=== PATIENT | male | born 1990 | race Two or more races ===

== ENCOUNTER 2020-08-18 15:30 | Emergency (ER) | payer MEDICAID, SELFPAY ==
[2020-08-18 15:42] VITALS: BP 159/95; BP 168/75; PULSE 100; PULSE 88; RESP 18; TEMP 37.3; O2SAT 97; BMI 31.1
--- NOTE | 2020-08-18 16:38 | ED.NAVMDI ---
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 Mode of arrival: ambulatory Limitations: no limitations History of Present Illness MD elicited complaint: nausea, vomiting, diarrhea, abdominal pain and other (headaches) Onset (ago): day(s) (2) Description of vomiting: bilious Associated nausea: Yes Associated abdominal pain: Yes Location of pain: periumbilical and RLQ Pain consistency: constant Severity: moderate Quality: stabbing Exacerbating factors: none Relieving factors: none Associated symptoms: loss of appetite, malaise and nausea/vomiting Related Data Previous Rx's Medication Instructions Recorded ondansetron 4 mg PO Q8H PRN #20 tab 08/18/20 Allergies Allergy/AdvReac Type Severity Reaction Status Date / Time No Known Allergies Allergy Unverified 06/11/20 19:21 [No Known Allergies*] Review of Systems Review of Systems: Constitutional : No Weight loss, No Fever, No Chills ENT/Mouth : No sore throat, No Rhinorrhea Eyes: No Swelling, No Redness Cardiovascular : No Chest Pain, No SOB, NoEdema Respiratory : No Cough, No Sputum, No Wheezing Gastrointestinal : Positive Nausea, Positive Vomiting, no Diarrhea, positive abdominal Pain, No Hematochezia, No Melena Genitourinary : No Dysuria, No Urinary Frequency, No Hematuria, No Urgency Musculoskeletal : No joint pain, No Myalgias, No Joint Swelling Skin : No Skin Lesions, No rash Neuro : No Weakness, No Numbness, No Dizziness, pos Headache Psych : No Anxiety/Panic, No Depression Heme/Lymph: No Bruising, No Lymphadenopathy Endocrine : No Polyuria, No Polydipsia All other systems reviewed and are negative. Gastrointestinal: Gastrointestinal: Reports nausea PMFSH Past Medical History Attestation statement: The following information was validated with the patient. Medical History No known health problems Social History Social History (Updated 08/18/20 @ 16:48 by Faby Dong DO) Alcohol intake: current Smoking Status: Current every day smoker Use of substances other than those prescribed or required for medical reasons: Unknown Substance Use Type: Former Substance User Substance Use Type Other:: on methadone 60mg now Advance Directives: No Advance Directives Information Provided: No Physical Exam Vital Signs: Vital Signs: Last Vital Signs Temp 99.5 F 08/18/20 18:00 Pulse 84 08/18/20 18:00 Resp 16 08/18/20 18:00 BP 123/81 08/18/20 18:00 Pulse Ox 96 08/18/20 18:00 Body Mass Index 31.1 Appearance: Alert. Oriented X3. active vomiting, mild acute distress. Eyes: Pupils equal, round and reactive to light. ENT: Pharynx normal. Neck: Normal inspection. Neck supple. CVS: Normal heart rate and rhythm. Pulses normal. Respiratory: No respiratory distress. Breath sounds normal. Abdomen: Soft and moderate ttp RLQ no rebound or guarding Skin: Skin warm and dry. Normal skin color. Normal skin turgor. Extremities: No lower extremity edema. No calf ttp Neuro: Oriented X 3. No motor deficit. No sensory deficit. Course Course Course Narrative: feels better, has no RUQ pain LFTs slightly higher doubt GB disease at this time, will refer to PCP for hepatitis workup from prior IVDA, stable for DC MDM - Nausea/Vomiting/Diarrhea MDM Narrative Medical decision making narrative: 30 yo male on methadone who reports being able to take his medications here with n/v/d with headaches and lower abdominal pain at this time will need labs, CT scan for colitis/appendicitis, IVF, IV medications, dispo per results and findings. Lab Data Result diagrams: 08/18/20 17:45 08/18/20 17:45 Labs: Lab Results 08/18/20 08/18/20 08/18/20 Range/Units 17:45 17:45 17:45 WBC 7.0 (4.8-10.8) X10*3/uL RBC 5.38 (4.60-5.80) X10*6/uL Hgb 15.0 (14.0-18.0) g/dl Hct 46.0 (42-52) % MCV 85.5 (80-98) fL MCH 27.9 (27.0-33.0) pg MCHC 32.6 (31.0-36.0) g/dl RDW 13.1 (11.0-16.0) % Plt Count 205 (160-400) X10*3/uL MPV 9.6 (9.4-12.4) fL Immature Gran % (Auto) 0.1 (0.0-0.4) % Neut % (Auto) 77.8 H (45-73) % Lymph % (Auto) 13.2 L (20-40) % [place] % (Auto) 8.4 (2-11) % Eos % (Auto) 0.1 (0-4) % Baso % (Auto) 0.4 (0-2) % Lymph # (Auto) 0.9 L (1.2-4.9) X10*3/uL [place] # (Auto) 0.6 (0.1-1.2) X10*3/uL Eos # (Auto) 0.0 (0.0-0.4) X10*3/uL Baso # (Auto) 0.0 (0.0-0.2) X10*3/uL Abs Immat Gran (auto) 0.01 (0.00-0.03) X10*3/uL Absolute Neuts (auto) 5.4 (2.0-8.3) X10*3/uL Absolute Nucleated RBC 0.000 (0.0-0.012) X10*3/uL Nucleated RBC % (auto) 0.0 (0.0-0.2) /100WBC Sodium 138 (135-145) mmol/L Potassium 4.5 (3.3-5.1) mmol/l Chloride 104 (96-108) mmol/L Carbon Dioxide 25 (22-29) mmol/L Anion Gap 14 (12-20) BUN 13 (9-16) mg/dL Creatinine 0.90 (0.5-1.4) mg/dL Estim Creat Clear Calc 132.8 Estimated GFR > 60 Random Glucose 94 (60-115) mg/dL Lactic Acid 1.3 (0.5-2.0) mmol/L Calcium 9.3 (8.4-10.2) mg/dL Magnesium 2.0 (1.6-2.6) mg/dL Total Bilirubin 0.3 (0.0-1.0) mg/dL Direct Bilirubin 0.2 (0.0-0.5) mg/dL AST 79 H (5-37) U/L ALT 113 H (0-40) U/L Alkaline Phosphatase 185 H (39-117) U/L Total Protein 8.2 H (6.5-8.0) g/dL Albumin 4.4 (3.5-5.0) g/dL Lipase 16 (8-78) U/L Ethyl Alcohol mg/dL 08/18/ Range/Units 17:45 WBC (4.8-10.8) X10*3/uL RBC (4.60-5.80) X10*6/uL Hgb (14.0-18.0) g/dl Hct (42-52) % MCV (80-98) fL MCH (27.0-33.0) pg MCHC (31.0-36.0) g/dl RDW (11.0-16.0) % Plt Count (160-400) X10*3/uL MPV (9.4-12.4) fL Immature Gran % (Auto) (0.0-0.4) % Neut % (Auto) (45-73) % Lymph % (Auto) (20-40) % [place] % (Auto) (2-11) % Eos % (Auto) (0-4) % Baso % (Auto) (0-2) % Lymph # (Auto) (1.2-4.9) X10*3/uL [place] # (Auto) (0.1-1.2) X10*3/uL Eos # (Auto) (0.0-0.4) X10*3/uL Baso # (Auto) (0.0-0.2) X10*3/uL Abs Immat Gran (auto) (0.00-0.03) X10*3/uL Absolute Neuts (auto) (2.0-8.3) X10*3/uL Absolute Nucleated RBC (0.0-0.012) X10*3/uL Nucleated RBC % (auto) (0.0-0.2) /100WBC Sodium (135-145) mmol/L Potassium (3.3-5.1) mmol/l Chloride (96-108) mmol/L Carbon Dioxide (22-29) mmol/L Anion Gap (12-20) BUN (9-16) mg/dL Creatinine (0.5-1.4) mg/dL Estim Creat Clear Calc Estimated GFR Random Glucose (60-115) mg/dL Lactic Acid (0.5-2.0) mmol/L Calcium (8.4-10.2) mg/dL Magnesium (1.6-2.6) mg/dL Total Bilirubin (0.0-1.0) mg/dL Direct Bilirubin (0.0-0.5) mg/dL AST (5-37) U/L ALT (0-40) U/L Alkaline Phosphatase (39-117) U/L Total Protein (6.5-8.0) g/dL Albumin (3.5-5.0) g/dL Lipase (8-78) U/L Ethyl Alcohol < 10 mg/dL Discharge Plan Discharge Clinical Impression: Abnormal LFTs Abdominal pain Qualifiers: Abdominal location: generalized Qualified Code(s): R10.84 - Generalized abdominal pain Vomiting Qualifiers: Vomiting type: unspecified Vomiting Intractability: non-intractable Nausea presence: with nausea Qualified Code(s): R11.2 - Nausea with vomiting, unspecified Patient Disposition: Home, Self-Care Instructions: Acute Nausea and Vomiting (ED), Abdominal Pain (ED) Additional Instructions: return to ED for any worsening symptoms or concerns Prescriptions: New ondansetron 4 mg tablet,disintegrating 4 mg PO Q8H PRN (Reason: nausea and vomiting) Qty: 20 RF: 0 Referrals: Physician,Unknown [Primary Care Provider] - 5 days (repeat liver function tests ) Stand Alone Forms: Work/School Release Print Language: Cameroonian
--- NOTE | 2020-08-18 16:44 | CT_ITS ---
EXAMINATION: CT ABDOMEN AND PELVIS WITH CONTRAST CLINICAL INFORMATION: Right lower quadrant pain COMPARISON: CT abdomen pelvis 06/22/2019 TECHNIQUE: Multidetector volumetric images were obtained from the superior aspect of the liver through the pubic symphysis following administration 85 mL of Omnipaque 350 intravenous contrast. Sagittal and coronal reformatted images were obtained on the technologist's workstation. Oral contrast: No This CT examination was performed using dose optimization techniques as appropriate, variously including the following: *Automated exposure control *Adjustment of mA and/or kV according to patient size (this includes techniques or standardized protocols for targeted exams where dose is matched to indication/reason for exam; i.e. extremities or head) *Use of iterative reconstruction technique DLP: 7 a mGy-cm FINDINGS: LUNG BASES: The visualized lung bases are unremarkable. LIVER, GALLBLADDER, AND BILIARY TREE: The liver is normal in size, shape, and attenuation. No focal hepatic lesion or biliary ductal dilatation is present. The gallbladder is unremarkable with no evidence of radiopaque gallstones, gallbladder wall thickening, or obvious pericholecystic inflammatory changes. PANCREAS: Unremarkable. SPLEEN: Unremarkable. ADRENAL GLANDS: Unremarkable. KIDNEYS AND URETERS: The kidneys are normal in size, shape, and attenuation. No hydronephrosis, hydroureter, or calculi seen. No perinephric stranding. BLADDER: Unremarkable. GASTROINTESTINAL TRACT: The small and large bowel are unremarkable. The appendix is unremarkable. ABDOMINAL WALL: No significant hernia is appreciated. LYMPH NODES: Normal. VASCULAR: Unremarkable. PELVIC VISCERA: Unremarkable. OSSEOUS STRUCTURES: Unremarkable. CT/CT abdomen pelvis w con IMPRESSION: No significant abnormality.
--- NOTE | 2020-08-18 17:00 | PC.NURSE ---
heart toes of 134 obtained via doppler
[2020-08-18] MEDS: 0.9 % Sodium Chloride 1,000 ML 999 ML IVCONT ×2 (17:24→18:30)
[2020-08-18] MEDS: Ketorolac Tromethamine 30 MG/ML VIAL IVPUSH (17:24)
[2020-08-18] MEDS: Metoclopramide HCl 10 MG/2 ML VIAL IVPUSH (17:24)
[2020-08-18] MEDS: diphenhydrAMINE HCL 50 MG/ML VIAL 25 MG IVPUSH (17:24)
[2020-08-18 17:53] LABS: Basophils Percent Auto 0.4 % (0-2); Eosinophils Percent Auto 0.1 % (0-4); Imm Gran Abs Auto 0.01 X10*3/uL (0.00-0.03); Imm Gran Pct Auto 0.1 % (0.0-0.4); Lymphocytes Absolute Auto 0.9 X10*3/uL (1.2-4.9); Lymphocytes Percent Auto 13.2 % (20-40); MANUAL DIFF FLAG NO; Mean Corpuscular HGB Conc 32.6 g/dl (31.0-36.0); Mean Corpuscular Hemoglobin 27.9 pg (27.0-33.0); Mean Corpuscular Volume 85.5 fL (80-98); Mean Platelet Volume 9.6 fL (9.4-12.4); Monocytes Absolute Auto 0.6 X10*3/uL (0.1-1.2); Monocytes Percent Auto 8.4 % (2-11); Neutrophils Absolute Auto 5.4 X10*3/uL (2.0-8.3); Neutrophils Percent Auto 77.8 % (45-73); Platelet Count 205 X10*3/uL (160-400); Red Blood Count 5.38 X10*6/uL (4.60-5.80); Red Cell Distribution Width 13.1 % (11.0-16.0)
[2020-08-18 18:00] VITALS: BP 123/81; PULSE 84; RESP 16; TEMP 37.5; O2SAT 96
[2020-08-18 18:16] LABS: Lactic Acid 1.3 mmol/L (0.5-2.0)
[2020-08-18 18:17] LABS: Ethanol < 10 mg/dL
[2020-08-18 18:31] LABS: Alanine Aminotransferase 113 U/L (0-40); Albumin Level 4.4 g/dL (3.5-5.0); Alkaline Phosphatase 185 U/L (39-117); Anion Gap 14 (12-20); Aspartate Amino Transferase 79 U/L (5-37); Bilirubin Direct 0.2 mg/dL (0.0-0.5); Bilirubin Total 0.3 mg/dL (0.0-1.0); Blood Urea Nitrogen 13 mg/dL (9-16); Calcium 9.3 mg/dL (8.4-10.2); Carbon Dioxide 25 mmol/L (22-29); Chloride 104 mmol/L (96-108); Creatinine Clr Calc Pharmacy 132.8; Estimated Glomerular Filt Rate > 60; Glucose Random 94 mg/dL (60-115); Lipase 16 U/L (8-78); Potassium 4.5 mmol/l (3.3-5.1); Sodium 138 mmol/L (135-145); Total Protein 8.2 g/dL (6.5-8.0)
[2020-08-18] MEDS: iohexoL 350 MG/ML 100 ML INFUS..BTL IV (19:06)
--- NOTE | 2020-08-18 19:50 | PC.NURSE ---
pt tolerating po well
[2020-08-18 22:56] LABS: Amphetamine Screen Urine Not Detected (Not Detect); Barbiturates, Urine Not Detected (Not Detect); Benzodiazepines Screen Urine Not Detected (Not Detect); Cannabinoid Screen Urine POSITIVE (Not Detect); Cocaine Screen Urine Not Detected (Not Detect); Opiate Screen Urine Not Detected (Not Detect); Phencyclidine Screen Urine Not Detected (Not Detect)
== END 2020-08-18 20:16 | disposition home or self-care (01) ==
PROVIDERS: Emergency Provider Emergency Medicine
DX: R79.89 Other specified abnormal findings of blood chemistry (principal); R11.2 Nausea with vomiting, unspecified; R51.9 Headache, unspecified; R10.31 Right lower quadrant pain; R10.84 Generalized abdominal pain; F17.200 Nicotine dependence, unspecified, uncomplicated; Z79.899 Other long term (current) drug therapy; Z71.6 Tobacco abuse counseling
CPT/HCPCS: 36415; 74177; 80048; 80076; 80307; 80320; 83605; 83690; 83735; 85025; 96361; 96374; 96375; 99284; J1200; J1885; J2765; Q9967

== ENCOUNTER 2023-02-18 11:25 | Emergency (ER) | payer MEDICAID, SELFPAY ==
[2023-02-18 11:40] VITALS: BP 145/90; PULSE 96; RESP 18; TEMP 36.6; O2SAT 99; BMI 34.4
--- NOTE | 2023-02-18 15:26 | MHC.RECOVRN ---
Spoke with MAURICIO Bañuelos at [facility]. Pt last received methadone, 65 mg on 02/17/23 at 0530. Pts information has been sent to [facility] and pt will need to present tomorrow with last dose letter. Provider and RN aware.
--- NOTE | 2023-02-18 15:29 | ED_ITS ---
HPI - General Adult General Chief complaint: General Medical Stated complaint: medication Time Seen by Provider: 02/18/23 13:16 Source: patient, RN notes reviewed and certified court/medical interpreter Mode of arrival: ambulatory Limitations: language barrier (Solution Design And Analysis Manager used) History of Present Illness HPI narrative: This is a 32-year-old Latvian-speaking male, with a past medical history of opioid use disorder on methadone 65 mg p.o., who presents to the emergency department for methadone dosing. Patient reports he was discharged from [facility] yesterday and was advised to follow up with the methadone clinic today however he reported there in the did not have all of his paperwork therefore he was unable to get his methadone dose today. Patient reports that he is feeling well and has no other complaints. No other complaints or concerns at this time. MD complaint: methadone dose Quality: aching Pain Consistency: constant Relieving factors: none Exacerbating factors: none Associated symptoms: denies other symptoms Treatments prior to arrival: none Related Data Previous Rx's Medication Instructions Recorded ondansetron 4 mg disintegrating 4 mg PO Q8H PRN nausea and 08/18/20 tablet vomiting #20 tabs Allergies Allergy/AdvReac Type Severity Reaction Status Date / Time No Known Allergies Allergy Unverified 06/11/20 19:21 [No Known Allergies*] Review of Systems Review of Systems: Constitutional: No Weight loss, No Fever, No Chills ENT/Mouth: No Ear Pain, No Nasal Congestion, No Sinus Pain, No Hoarseness, No sore throat, No Rhinorrhea, No Swallowing Difficulty Cardiovascular: No Chest Pain, No SOB Respiratory: No Cough, No Sputum, No Wheezing Gastrointestinal: No Nausea, No Vomiting, No Diarrhea, No Constipation, No Abdominal pain Genitourinary: No Dysuria, No Urinary Frequency, No Hematuria, No Urinary Incontinence/retention, No Urgency, No Flank Pain Musculoskeletal: No joint pain, No Myalgias, No Joint Swelling Skin: No Skin Lesions, No rash Neuro: No Weakness, No Numbness, No Paresthesias PMFSH Past Medical History Medical History No known health problems Social History Social History (Updated 08/18/20 @ 16:48 by Priscilla Dong DO) Alcohol intake: current Substance Use Type: Former Substance User Advance Directives: No Advance Directives Information Provided: No Physical Exam ED Vital Signs: Vital Signs - 24 hr 02/18/23 11:40 Temperature 98 F Pulse Rate 96 Respiratory Rate 18 Blood Pressure 145/90 H Pulse Oximetry 99 Oxygen Delivery Method Room Air BMI result Body Mass Index 34.4 General: Awake, alert, and oriented X3. No acute distress. HEENT: Normal inspection CVS: Normal heart rate and rhythm. Pulses normal. Respiratory: No respiratory distress Skin: Warm, dry, no rashes noted to exposed skin. Normal skin color. Normal skin turgor. Extremities: Normal inspection Neuro: Oriented X 3. No motor deficit. No sensory deficit. Medications Administered Discontinued Medications Generic Name Dose Route Start Last Admin Trade Name Freq PRN Reason Stop Dose Admin Methadone HCl 65 mg 02/18/23 15:28 02/18/23 15:37 Methadone Hcl 20 Mg/2 Ml Oral.Conc PO 02/18/23 15:29 65 mg ONCE ONE Administration Medical Decision Making Medical Decision Making MDM Narrative: 32-year-old male presenting to the emergency department for methadone dosing. Patient was discharged from [facility] yesterday and was advised to follow-up outpatient however reports when he arrived to the clinic today they were unable to does as needed not all of the paperwork. Case discussed with recovery team who confirmed methadone dosing of methadone 65 mg by mouth, last dose was yesterday. Patient medicated in the department with methadone 65 mg p.o. and given a last dose letter for him to follow-up with the outpatient clinic tomorrow. He has no current complaints. He is feeling well. Vital signs stable. Patient understands and agrees with plan. Patient stable for discharge. Differential Diagnosis Differential Diagnoses: The differential diagnosis associated with the presentation includes Polysubstance abuse, opioid use disorder, methadone dose, anxiety, depression Discharge Plan Discharge Clinical Impression: Opioid use disorder Patient Disposition: Home, Self-Care Instructions: Opioid Use Disorder (ED) Additional Instructions: You received your methadone 65 mg dose today. We had given you a last dose letter so you can follow-up with your Methadone Clinic outpatient tomorrow. Please return with any new or worsening symptoms. Prescriptions: No Action ondansetron 4 mg tablet,disintegrating 4 mg PO Q8H PRN (Reason: nausea and vomiting) Qty: 20 0RF Interventions: ED Discharge Assessment Last Done: 05/27/23 15:45 Discharge Date/Time: 02/18/23 15:45
[2023-02-18] MEDS: methADONE HCl 20 MG/2 ML ORAL.CONC 65 MG PO (15:37)
--- NOTE | 2023-02-18 15:45 | PC.NURSE ---
last dose letter given.
== END 2023-02-18 15:45 | disposition home or self-care (01) ==
PROVIDERS: Emergency Provider Internal Medicine
DX: F11.20 Opioid dependence, uncomplicated (principal)
CPT/HCPCS: 99282; 99283

== ENCOUNTER 2023-07-03 11:11 | Emergency (ER) | payer MEDICAID, SELFPAY ==
[2023-07-03 11:19] VITALS: BP 150/100; PULSE 72; O2SAT 94
[2023-07-03 12:14] VITALS: BP 140/94; PULSE 71; RESP 16; TEMP 36.5; O2SAT 97; BMI 33.3
--- NOTE | 2023-07-03 12:14 | ED.GENADULT ---
HPI - General Adult General Chief complaint: Nausea/Vomiting/Diarrhea Stated complaint: NAUSEA/VOMITING,DIZZY S/P METHADONE X3 WKS PER EMS Time Seen by Provider: 07/03/23 15:15 Source: patient Mode of arrival: ambulatory History of Present Illness HPI narrative: patient was at the methadone clinic and he vomited his methadone. Sent from the clinic Onset (ago): day(s) Related Data Previous Rx's Medication Instructions Recorded ondansetron 4 mg disintegrating 4 mg PO Q8H PRN nausea and 08/18/20 tablet vomiting #20 tabs ondansetron 4 mg disintegrating 4 mg PO Q8H 4 days #12 tabs 07/03/23 tablet Allergies Allergy/AdvReac Type Severity Reaction Status Date / Time No Known Allergies Allergy Verified 07/03/23 12:14 [No Known Allergies*] Review of Systems Review of Systems: Yes all other systems are reviewed and are negative Neurologic: Denies Sensory deficit (Neuro) PMFSH Past Medical History Medical History No known health problems Social History Social History Alcohol intake: current Smoked in Last 30 Days: Yes Use of substances other than those prescribed or required for medical reasons: Yes Substance Use Type: Marijuana Advance Directives: No Advance Directives Information Provided: No Physical Exam ED Vital Signs: Vital Signs - 24 hr 07/03/23 12:14 07/03/23 15:08 Temperature 97.7 F Pulse Rate 71 69 Respiratory Rate 16 Blood Pressure 140/94 H 139/81 Pulse Oximetry 97 96 Oxygen Delivery Method Room Air Room Air BMI result Body Mass Index 33.3 Const General: healthy appearing Nutritional Appearance: average body habitus Orientation/consciousness: oriented to person and patient oriented x3 Limitations: no limitations HENMT Head: Yes normal to inspection Ears: external ears normal General nose exam: Normal external nose present Mouth: Normal oral and palatal mucosa present and oropharynx normal Throat: Yes posterior oropharynx normal Eyes General: appearance normal, both eyes and all related structures Neck Neck: Yes normal visual inspection Chest Chest palpation & inspection: normal inspection of the chest Resp Auscultation: clear to auscultation bilaterally Cardio Jugular venous distension: no JVD Rate: regular rate Rhythm: regular rhythm Heart sounds: S1 normal heart sound present and S2 normal heart sound present GI Inspection: Yes normal to inspection Palpation (GI): Soft to palpation, nontender and No hepatosplenomegaly present Auscultation: normal bowel sounds General: Yes no CVA tenderness Back/Spine/Pelvis Back: no CVA tenderness Skin General skin exam: no rashes or lesions noted Neuro General: oriented to person and patient oriented x3 Cranial nerves: Yes CN's II-XII intact bilaterally Motor exam (neuro): 5/5 motor strength present throughout Sensory Exam: No Sensory deficit (Neuro) Extrem General: Yes normal to inspection Psych Appearance: grossly normal Course Course Course Narrative: RME performed by Julienne Santana PA-C. Patient is a 33 year old assigned female at presenting to the emergency department with nausea, vomiting, and abdominal pain. Labs and swabs ordered. Patient placed back in the waiting room pending room availability and results. Reevaluation(s) Reevaluation #1: Despite WBC of 16, abdomen is soft nontender, no guarding will give po methadone and dc home Time: 16:20 Medications Administered Discontinued Medications Generic Name Dose Route Start Last Admin Trade Name Freq PRN Reason Stop Dose Admin Sodium Chloride 500 mls @ 999 mls/hr 07/03/23 15:30 07/03/23 15:45 Ns IV 07/03/23 16:00 999 mls/hr .Q31M VICENTE Administration Ondansetron HCl 4 mg 07/03/23 15:26 07/03/23 15:47 Ondansetron Hcl 4 Mg/2 Ml Vial IVPUSH 07/03/23 15:27 4 mg ONCE ONE Administration Medical Decision Making Differential Diagnosis Differential Diagnoses: The differential diagnosis associated with the presentation includes (cyclical vomiting, opiate withdrawal, appendicitis) Admission/Observation Consideration of admission/observation: Escalation of care including admission/observation considered (upon arrival patient was considered for admission) Lab Data MDM Lab Attestation statement: I reviewed the patient's lab results. (WBC elevated abdomen completely soft) 07/03/23 12:35 07/03/23 12:35 Labs: Lab Results 07/03/23 07/03/23 Range/Units 12:35 15:39 WBC 16.0 H (4.8-10.8) X10*3/uL RBC 5.65 (4.60-5.80) X10*6/uL Hgb 15.8 (14.0-18.0) g/dl Hct 48.3 (42.0-52.0) % MCV 85.5 (80.0-98.0) fL MCH 28.0 (27.0-33.0) pg MCHC 32.7 (31.0-36.0) g/dl RDW 13.0 (11.0-16.0) % Plt Count 258 (160-400) X10*3/uL MPV 9.5 (9.4-12.4) fL Immature Gran % (Auto) 0.4 (0.0-0.4) % Neut % (Auto) 81.3 H (45-73) % Lymph % (Auto) 13.6 L (20-40) % [place] % (Auto) 4.1 (2-11) % Eos % (Auto) 0.4 (0-4) % Baso % (Auto) 0.2 (0-2) % Lymph # (Auto) 2.2 (1.2-4.9) X10*3/uL [place] # (Auto) 0.7 (0.1-1.2) X10*3/uL Eos # (Auto) 0.1 (0.0-0.4) X10*3/uL Baso # (Auto) 0.0 (0.0-0.2) X10*3/uL Abs Immat Gran (auto) 0.06 H (0.00-0.03) X10*3/uL Absolute Neuts (auto) 13.0 H (2.0-8.3) x10*3/uL Absolute Nucleated RBC 0.000 (0.0-0.012) X10*3/uL Nucleated RBC % (auto) 0.0 (0.0-0.2) /100WBC Sodium 141 (135-145) mmol/L Potassium 4.0 (3.3-5.1) mmol/L Chloride 104 (96-108) mmol/L Carbon Dioxide 23 (22-29) mmol/L Anion Gap 18 (12-20) BUN 11 (9-16) mg/dL Creatinine 0.90 (0.5-1.4) mg/dL Estim Creat Clear Calc 120.8 Estimated GFR > 60 Random Glucose 106 (60-115) mg/dL Calcium 10.4 H D (8.4-10.2) mg/dL Magnesium 1.8 (1.6-2.6) mg/dL Total Bilirubin 0.6 (0.0-1.0) mg/dL AST 46 H (5-37) U/L ALT 47 H (0-40) U/L Alkaline Phosphatase 112 (39-117) U/L Troponin I High Sens < 2.7 (<3.5-35.0) ng/L Total Protein 8.3 H (6.5-8.0) g/dL Albumin 4.3 (3.5-5.0) g/dL Lipase 30 (8-78) U/L Urine Color Dark Yellow Urine Appearance Clear Urine pH 6.0 (5.0-9.0) Ur Specific [place] >= 1.030 H (1.005-1.025) Urine Protein Trace (Neg-Trace) mg/dL Urine Glucose (UA) Negative (Negative) mg/dL Urine Ketones 40 (Negative) mg/dL Urine Blood Negative (Negative) Urine Nitrite Negative (Negative) Ur Leukocyte Esterase Trace H (Negative) Urine RBC 3-5 H (0-2) /HPF Urine WBC 0-5 (0-5) /HPF Ur Squamous Epith Cells 0-2 (0-2) /HPF Urine Bacteria None Seen (None Seen) Hyaline Casts 0-2 (0-2) /LPF Urine Opiates Screen Not Detected (Not Detect) Urine Fentanyl Screen Not Detected (Not Detect) Ur Barbiturates Screen Not Detected (Not Detect) Ur Phencyclidine Scrn Not Detected (Not Detect) Ur Amphetamines Screen Not Detected (Not Detect) U Benzodiazepines Scrn Not Detected (Not Detect) Urine Cocaine Screen POSITIVE H (Not Detect) U Marijuana (THC) Screen POSITIVE H (Not Detect) Influenza Type A (PCR) NEGATIVE (Negative) Influenza Type B (PCR) NEGATIVE (Negative) RSV RNA Qual (PCR) NEGATIVE (Negative) SARS-CoV-2 RNA (RT-PCR) NEGATIVE (Negative) Tests considered The following testing was considered but not selected: abdominal CT considered but the abdomen is nontender Chronic Conditions Patient?s care impacted by: Other (opiate dependence) Social Determinants Patient?s care significantly limited by Social Determinants of Health including: Alcoholism and drug addiction in family Discharge Plan Discharge Clinical Impression: Polysubstance (including opioids) dependence with physiological dependence Vomiting Qualifiers: Vomiting type: unspecified Nausea presence: with nausea Qualified Code(s): R11.2 - Nausea with vomiting, unspecified Patient Disposition: Home, Self-Care Instructions: Acute Nausea and Vomiting (ED), Polysubstance Abuse (ED) Prescriptions: New ondansetron 4 mg tablet,disintegrating 4 mg PO Q8H 4 Days Qty: 12 0RF No Action ondansetron 4 mg tablet,disintegrating 4 mg PO Q8H PRN (Reason: nausea and vomiting) Qty: 20 0RF Referrals: [facility] [Primary Care Provider] - 5 days
[2023-07-03 12:59] LABS: Alanine Aminotransferase 47 U/L (0-40); Albumin Level 4.3 g/dL (3.5-5.0); Alkaline Phosphatase 112 U/L (39-117); Anion Gap 18 (12-20); Aspartate Amino Transferase 46 U/L (5-37); Bilirubin Total 0.6 mg/dL (0.0-1.0); Blood Urea Nitrogen 11 mg/dL (9-16); Calcium 10.4 mg/dL (8.4-10.2); Carbon Dioxide 23 mmol/L (22-29); Chloride 104 mmol/L (96-108); Creatinine Clr Calc Pharmacy 120.8; Estimated Glomerular Filt Rate > 60; Glucose Random 106 mg/dL (60-115); Magnesium 1.8 mg/dL (1.6-2.6); Sodium 141 mmol/L (135-145); Total Protein 8.3 g/dL (6.5-8.0)
[2023-07-03 13:41] LABS: Lipase 30 U/L (8-78)
[2023-07-03 15:08] VITALS: BP 139/81; PULSE 69; O2SAT 96
--- NOTE | 2023-07-03 15:17 | PC.NURSE ---
pt reports he vomited after receiving his methadone dose and reports the staff at [facility] told him to go to the hospital to get his dose
== END 2023-07-03 18:16 | disposition home or self-care (01) ==
PROVIDERS: Physician Assistant Medical; Emergency Provider Emergency Medicine
DX: F11.29 Opioid dependence with unspecified opioid-induced disorder (principal); R11.2 Nausea with vomiting, unspecified; R42 Dizziness and giddiness; Z20.822 Contact with and (suspected) exposure to COVID-19; Z11.52 Encounter for screening for COVID-19; Z79.899 Other long term (current) drug therapy
CPT/HCPCS: 0241U; 80053; 80307; 81001; 83690; 83735; 84484; 85025; 96361; 96374; 99284; J2405

== ENCOUNTER 2024-06-29 17:51 | Inpatient (IN) | payer MEDICAID, SELFPAY ==
--- NOTE | ~2024-06-29 | US_ITS ---
EXAMINATION: US ABDOMEN LIMITED CLINICAL INFORMATION: Abdominal pain, elevated LFTs, CBD dilation. COMPARISON: CT abdomen/pelvis dated 06/29/2024 TECHNIQUE: Real-time imaging of the right upper quadrant abdominal viscera. FINDINGS: PANCREAS: Normal. LIVER: The liver is normal in size. The liver contour is normal. Parenchymal echogenicity is normal. No focal hepatic lesion. There is mild intrahepatic biliary duct dilatation seen. GALLBLADDER: The gallbladder is physiologically distended. Multiple mobile gallstones are present. No evidence of gallbladder wall thickening or pericholecystic fluid. COMMON BILE DUCT: Normal in caliber measuring 0.9 cm in diameter. RIGHT KIDNEY: Normal. No hydronephrosis. No renal calculi or focal parenchymal lesions. The kidney measures 10.2 cm in maximum dimension. FREE FLUID: None. US/US abdomen limited IMPRESSION: 1. Cholelithiasis without evidence of acute cholecystitis. 2. Mild intrahepatic biliary ductal dilatation and mildly dilated common bile duct measuring up to 0.9 cm. Recommend correlation with liver function tests. If there is concern for biliary obstruction, consider MRCP for further evaluation. Electronically signed by: Andreina Rivera MD 06/30/2024 12:15 PM EDT
--- NOTE | ~2024-06-29 | CT_ITS ---
EXAMINATION: CT ABDOMEN AND PELVIS WITH CONTRAST CLINICAL INFORMATION: Small bowel obstruction, foreign body ingestion. COMPARISON: CT abdomen and pelvis 08/18/2020. TECHNIQUE: Multidetector volumetric images were obtained from the superior aspect of the liver through the pubic symphysis following administration 85 mL of Omnipaque 350 intravenous contrast. Sagittal and coronal reformatted images were obtained on the technologist's workstation. Oral contrast: No This CT examination was performed using dose optimization techniques as appropriate, variously including the following: *Automated exposure control *Adjustment of mA and/or kV according to patient size (this includes techniques or standardized protocols for targeted exams where dose is matched to indication/reason for exam; i.e. extremities or head) *Use of iterative reconstruction technique DLP: 645 mGy-cm FINDINGS: LUNG BASES: The visualized lung bases are unremarkable. LIVER, GALLBLADDER, AND BILIARY TREE: The liver is normal in size, shape, and attenuation. No focal hepatic lesion or biliary ductal dilatation is present. The common bile duct measures 1.2 cm in diameter and mild hepatic biliary duct dilatation is present. Normal appearance of the gallbladder. No choledocholithiasis or cholelithiasis identified. PANCREAS: Unremarkable. SPLEEN: Unremarkable. ADRENAL GLANDS: Unremarkable. KIDNEYS AND URETERS: The kidneys are normal in size, shape, and attenuation. No hydronephrosis, hydroureter, or calculi seen. No perinephric stranding. BLADDER: Unremarkable. GASTROINTESTINAL TRACT: Normal appearance of the appendix. No free intraperitoneal fluid or gas collections. No intestinal dilatation or mural thickening. Moderate physiologic fluid distention of the stomach. Normal appearance of the duodenum. Normal appearance of the terminal ileum and ileocecal valve. ABDOMINAL WALL: No significant hernia is appreciated. LYMPH NODES: Normal. VASCULAR: Unremarkable. PELVIC VISCERA: Normal prostate. OSSEOUS STRUCTURES: Vacuum phenomena within the intervertebral disc and partially visualized posterior broad-based disc bulge L4-L5. CT/CT abdomen pelvis w IV con IMPRESSION: *No definitive acute abnormalities identified. No evidence of intestinal obstruction. No radiodense ingested foreign body visualized. *Mild diffuse intrahepatic biliary duct dilatation and moderate diffuse dilatation of the common bile duct. Findings are new compared with 08/18/2020 and could represent functional obstruction the region of the sphincter of bony or possible obstruction related to otherwise occult choledocholithiasis. *L4-L5 moderate posterior broad-based disc bulge. Electronically signed by: Thang Loya MD 06/29/2024 11:28 PM EDT RP
[2024-06-29 18:15] VITALS: BP 128/74; PULSE 81; RESP 24; TEMP 36.3; O2SAT 98; BMI 27.4
--- NOTE | 2024-06-29 18:15 | ED.GENADULT ---
HPI - General Adult General Chief complaint: Abdominal Pain Stated complaint: upper right side pain Time Seen by Provider: 06/29/24 18:50 Source: patient Limitations: language barrier History of Present Illness ED Provider: Rhonda Wallace PA-C HPI narrative: 33-year-old male presents with abdominal pain that began earlier today. History limited, patient is not cooperative, he is not wanting to engage in conversation so as to obtain detailed history in regard to his current symptoms. Pain over right upper abdomen, unable to describe the pain, however indicates it is severe, and it fluctuates in intensity. Associated nausea vomiting. Denies diarrhea or fever. Unclear if the patient was having postprandial symptoms earlier today. Related Data Previous Rx's ?Medication ?Instructions ?Recorded ondansetron 4 mg disintegrating 4 mg PO Q8H PRN nausea and 08/18/20 tablet vomiting #20 tabs ondansetron 4 mg disintegrating 4 mg PO Q8H 4 days #12 tabs 07/03/23 tablet Allergies Allergy/AdvReac Type Severity Reaction Status Date / Time No Known Allergies Allergy Verified 06/29/24 18:17 [No Known Allergies*] Review of Systems Review of Systems: Yes all other systems are reviewed and are negative Constitutional: Constitutional: Denies fever(s) Cardiovascular: Cardiovascular: Denies chest pain and Denies dyspnea Respiratory: Respiratory: Denies cough and Denies dyspnea Gastrointestinal: Gastrointestinal: Reports abdominal pain, Denies diarrhea, Reports nausea and Reports vomiting PMFSH Past Medical History Attestation statement: The following information was validated with the patient. Medical History No known health problems Social History Social History Alcohol intake: current Use of substances other than those prescribed or required for medical reasons: No Substance Use Type: Marijuana Advance Directives: No Advance Directives Information Provided: No Physical Exam ED Vital Signs: Vital Signs - 24 hr 06/29/24 18:15 06/29/24 20:54 06/29/24 22:00 Temperature 97.3 F 98.3 F Pulse Rate 81 63 Respiratory Rate 24 H 20 18 Blood Pressure 128/74 105/62 Pulse Oximetry 98 99 Oxygen Delivery Method Room Air Room Air 06/29/24 22:10 Temperature 98.0 F Pulse Rate 63 Respiratory Rate 16 Blood Pressure 131/85 Pulse Oximetry 98 Oxygen Delivery Method Room Air BMI result Body Mass Index 27.4 Const Other: Awake, yelling in the room writhing on the bed unable to sit still Orientation/consciousness: patient oriented x3 Resp Effort & Inspection: normal respiratory effort Cardio Other: Nonlabored respiration GI Other: Abdomen is soft, nondistended, moderate tenderness right upper quadrant and epigastric region with mild involuntary guarding Skin Other: Warm dry no rash Neuro General: patient oriented x3, no focal motor deficits and CN's II-XI intact bilaterally Psych Other: A bit belligerent at times Course Course Course Narrative: RME performed by Julienne Santana PA-C. Patient is a 33 year old assigned male at presenting to the emergency department with abdominal pain, nausea, and vomiting. Patient states he has been having non stop nausea and vomiting with a possible mass in his abdomen. Detailed physical exam and review of systems are deferred to the drop press hand. Labs ordered. funeral prearrangement counselor aware. Reevaluation(s) Reevaluation #1: Patient has had 2 doses of Dilaudid, he states his pain is still present in the medication did not help, he states ?it made my pain worse?, we will try an alternative, we will give droperidol Time: 20:59 Medications Administered Discontinued Medications Generic Name Dose Route Start Last Admin Trade Name Freq PRN Reason Stop Dose Admin Diphenhydramine HCl 12.5 mg 06/29/24 18:18 06/29/24 19:11 Diphenhydramine Hcl 50 Mg/Ml Vial IVPUSH 06/29/24 18:19 12.5 mg ONCE ONE Administration Droperidol 2.5 mg 06/29/24 21:00 06/29/24 21:16 Droperidol 5 Mg/2 Ml Vial IVPUSH 06/29/24 21:01 2.5 mg ONCE ONE Administration Hydromorphone HCl 1 mg 06/29/24 18:17 06/29/24 19:12 Hydromorphone Hcl 1 Mg/Ml Syringe IVPUSH 06/29/24 18:18 1 mg ONCE ONE Administration Protocol Hydromorphone HCl 1 mg 06/29/24 20:48 06/29/24 20:54 Hydromorphone Hcl 1 Mg/Ml Syringe IVPUSH 06/29/24 20:49 1 mg ONCE ONE Administration Protocol Sodium Chloride 1,000 mls @ 999 mls/hr 06/29/24 18:30 06/29/24 21:00 Ns IV 06/29/24 19:30 Infused .Q1H1M VICENTE Infusion Ondansetron HCl 4 mg 06/29/24 19:03 06/29/24 19:11 Ondansetron Hcl 4 Mg/2 Ml Vial IVPUSH 06/29/24 19:04 4 mg ONCE ONE Administration Procedures Procedure Narrative Procedure Narrative: Ultrasound-guided IV 18 gauge 3-1/4 inch catheter placed in the right upper extremity. Adequate blood return, flushes well, secured with Tegaderm The patient kept bending his arm, the IV infiltrated, having To place an additional ultrasound-guided IV 18 gauge 3-1/4 inch catheter placed in the right upper arm, superior to the infiltrated site. The line has adequate blood return, flushes well and secured with Tegaderm Medical Decision Making Medical Decision Making MDM Narrative: 33-year-old male presents with abdominal pain that began earlier today. History limited, patient is not cooperative, he is not wanting to engage in conversation so as to obtain detailed history in regard to his current symptoms. Pain over right upper abdomen, unable to describe the pain, however indicates it is severe, and it fluctuates in intensity. Associated nausea vomiting. Denies diarrhea or fever. Unclear if the patient was having postprandial symptoms earlier today. Patient also verbalized that he ?swallowed a plastic cap ?. He also keeps motioning that he thinks something is going to ?explode? in his belly. When asked if he ingested drugs, he will not answer us. Legal Billing Analyst was utilized to try to gather additional history. No relevant chronic issues History: Per patient which is limited I have considered the following differential diagnoses: Foreign body ingestion, bowel obstruction, biliary colic, cholecystitis, gastritis, pancreatitis Plan: The patient is assessment began from triage, out in [facility], screening labs were obtained including LFTs. His LFTs are markedly elevated, I was going to order an ultrasound of the right upper quadrant, however he is now verbalizing that he may have ingested a foreign object, we will obtain a CT scan. Also adding on lipase and fractionate the bilirubin. Pain meds and IV fluids were ordered, I need to place an ultrasound-guided line. I have independently reviewed the following tests: Labs: Leukocytosis with left shift, not anemic, no electrolyte abnormality, total bilirubin 4.8, I ordered direct which is 3.6, AST 112, ALT 235, alk-phos 119, lipase 30 CT abdomen and pelvis:CT ABDOMEN AND PELVIS WITH CONTRAST CLINICAL INFORMATION: Small bowel obstruction, foreign body ingestion. COMPARISON: CT abdomen and pelvis 08/18/2020. TECHNIQUE: Multidetector volumetric images were obtained from the superior aspect of the liver through the pubic symphysis following administration 85 mL of Omnipaque 350 intravenous contrast. Sagittal and coronal reformatted images were obtained on the technologist's workstation. Oral contrast: No This CT examination was performed using dose optimization techniques as appropriate, variously including the following: *Automated exposure control *Adjustment of mA and/or kV according to patient size (this includes techniques or standardized protocols for targeted exams where dose is matched to indication/reason for exam; i.e. extremities or head) *Use of iterative reconstruction technique DLP: 645 mGy-cm FINDINGS: LUNG BASES: The visualized lung bases are unremarkable. LIVER, GALLBLADDER, AND BILIARY TREE: The liver is normal in size, shape, and attenuation. No focal hepatic lesion or biliary ductal dilatation is present. The common bile duct measures 1.2 cm in diameter and mild hepatic biliary duct dilatation is present. Normal appearance of the gallbladder. No choledocholithiasis or cholelithiasis identified. PANCREAS: Unremarkable. SPLEEN: Unremarkable. ADRENAL GLANDS: Unremarkable. KIDNEYS AND URETERS: The kidneys are normal in size, shape, and attenuation. No hydronephrosis, hydroureter, or calculi seen. No perinephric stranding. BLADDER: Unremarkable. GASTROINTESTINAL TRACT: Normal appearance of the appendix. No free intraperitoneal fluid or gas collections. No intestinal dilatation or mural thickening. Moderate physiologic fluid distention of the stomach. Normal appearance of the duodenum. Normal appearance of the terminal ileum and ileocecal valve. ABDOMINAL WALL: No significant hernia is appreciated. LYMPH NODES: Normal. VASCULAR: Unremarkable. PELVIC VISCERA: Normal prostate. OSSEOUS STRUCTURES: Vacuum phenomena within the intervertebral disc and partially visualized posterior broad-based disc bulge L4-L5. CT/CT abdomen pelvis w IV con IMPRESSION: *No definitive acute abnormalities identified. No evidence of intestinal obstruction. No radiodense ingested foreign body visualized. *Mild diffuse intrahepatic biliary duct dilatation and moderate diffuse dilatation of the common bile duct. Findings are new compared with 08/18/2020 and could represent functional obstruction the region of the sphincter of bony or possible obstruction related to otherwise occult choledocholithiasis. *L4-L5 moderate posterior broad-based disc bulge. Electronically signed by: Thang Loya MD 06/29/2024 11:28 PM EDT Lab Data 06/29/24 19:30 06/29/24 19:30 Labs: Lab Results 06/29/24 Range/Units 19:30 WBC 13.0 H (4.8-10.8) X10*3/uL RBC 5.11 (4.60-5.80) X10*6/uL Hgb 14.6 (14.0-18.0) g/dl Hct 42.6 (42.0-52.0) % MCV 83.4 (80.0-98.0) fL MCH 28.6 (27.0-33.0) pg MCHC 34.3 (31.0-36.0) g/dl RDW 13.0 (11.0-16.0) % Plt Count 246 (160-400) X10*3/uL MPV 9.9 (9.4-12.4) fL Immature Gran % (Auto) 0.5 H (0.0-0.4) % Neut % (Auto) 81.8 H (45-73) % Lymph % (Auto) 10.5 L (20-40) % [place] % (Auto) 6.6 (2-11) % Eos % (Auto) 0.3 (0-4) % Baso % (Auto) 0.3 (0-2) % Lymph # (Auto) 1.4 (1.2-4.9) X10*3/uL [place] # (Auto) 0.9 (0.1-1.2) X10*3/uL Eos # (Auto) 0.0 (0.0-0.4) X10*3/uL Baso # (Auto) 0.0 (0.0-0.2) X10*3/uL Abs Immat Gran (auto) 0.07 H (0.00-0.03) X10*3/uL Absolute Neuts (auto) 10.6 H (2.0-8.3) x10*3/uL Absolute Nucleated RBC 0.000 (0.0-0.012) X10*3/uL Nucleated RBC % (auto) 0.0 (0.0-0.2) /100WBC Sodium 141 (135-145) mmol/L Potassium 3.6 (3.3-5.1) mmol/L Chloride 101 (96-108) mmol/L Carbon Dioxide 28 (22-29) mmol/L Anion Gap 16 (12-20) BUN 13 (9-16) mg/dL Creatinine 1.18 (0.5-1.4) mg/dL Estim Creat Clear Calc 87.0 Estimated GFR > 60 Random Glucose 111 (60-115) mg/dL Calcium 9.8 (8.4-10.2) mg/dL Magnesium 2.4 (1.6-2.6) mg/dL Total Bilirubin 4.8 H (0.0-1.0) mg/dL Direct Bilirubin 3.6 H (0.0-0.5) mg/dL AST 112 H (5-37) U/L ALT 235 H (0-40) U/L Alkaline Phosphatase 119 H (39-117) U/L Troponin I High Sens < 2.7 (<3.5-35.0) ng/L Total Protein 8.4 H (6.5-8.0) g/dL Albumin 4.7 (3.5-5.0) g/dL Lipase 30 (8-78) U/L Influenza Type A (PCR) NEGATIVE (Negative) Influenza Type B (PCR) NEGATIVE (Negative) RSV RNA Qual (PCR) NEGATIVE (Negative) SARS-CoV-2 RNA (RT-PCR) NEGATIVE (Negative) Discharge Plan Discharge Clinical Impression: Biliary obstruction Patient Disposition: Admitted As Inpatient
--- NOTE | 2024-06-29 18:17 | ECG_ITS ---
Test Reason : EPIGASTRIC Blood Pressure : / mmHG Vent. Rate : 069 BPM Atrial Rate : 069 BPM P-R Int : 132 ms QRS Dur : 134 ms QT Int : 460 ms P-R-T Axes : 022 051 042 degrees QTc Int : 492 ms Normal sinus rhythm with sinus arrhythmia Right bundle branch block Abnormal ECG No previous ECGs available Referred By: Julienne Santana Electronically Signed By:CARLOS LIU
[2024-06-29] MEDS: 0.9 % Sodium Chloride 1,000 ML 999 ML IV (19:11)
[2024-06-29] MEDS: ondansetron HCL 4 MG/2 ML VIAL IVPUSH (19:11)
[2024-06-29] MEDS: diphenhydrAMINE HCL 50 MG/ML VIAL 12.5 MG IVPUSH (19:11)
[2024-06-29] MEDS: HYDROmorphone HCl 1 MG/ML SYRINGE IVPUSH ×2 (19:12→20:54)
[2024-06-29 19:35] LABS: MANUAL DIFF FLAG NO
[2024-06-29 19:36] LABS: Basophils Percent Auto 0.3 % (0-2); Eosinophils Percent Auto 0.3 % (0-4); Hematocrit 42.6 % (42.0-52.0); Hemoglobin 14.6 g/dl (14.0-18.0); Imm Gran Abs Auto 0.07 X10*3/uL (0.00-0.03); Imm Gran Pct Auto 0.5 % (0.0-0.4); Lymphocytes Absolute Auto 1.4 X10*3/uL (1.2-4.9); Lymphocytes Percent Auto 10.5 % (20-40); Mean Corpuscular HGB Conc 34.3 g/dl (31.0-36.0); Mean Corpuscular Hemoglobin 28.6 pg (27.0-33.0); Mean Corpuscular Volume 83.4 fL (80.0-98.0); Mean Platelet Volume 9.9 fL (9.4-12.4); Monocytes Absolute Auto 0.9 X10*3/uL (0.1-1.2); Monocytes Percent Auto 6.6 % (2-11); Neutrophils Absolute Auto 10.6 x10*3/uL (2.0-8.3); Neutrophils Percent Auto 81.8 % (45-73); Platelet Count 246 X10*3/uL (160-400); Red Blood Count 5.11 X10*6/uL (4.60-5.80)
[2024-06-29 19:50] LABS: Alanine Aminotransferase 235 U/L (0-40); Albumin Level 4.7 g/dL (3.5-5.0); Alkaline Phosphatase 119 U/L (39-117); Anion Gap 16 (12-20); Aspartate Amino Transferase 112 U/L (5-37); Bilirubin Total 4.8 mg/dL (0.0-1.0); Blood Urea Nitrogen 13 mg/dL (9-16); Calcium 9.8 mg/dL (8.4-10.2); Carbon Dioxide 28 mmol/L (22-29); Chloride 101 mmol/L (96-108); Estimated Glomerular Filt Rate > 60; Glucose Random 111 mg/dL (60-115); Lipase 30 U/L (8-78); Magnesium 2.4 mg/dL (1.6-2.6); Potassium 3.6 mmol/L (3.3-5.1); Sodium 141 mmol/L (135-145); Total Protein 8.4 g/dL (6.5-8.0)
[2024-06-29 19:59] LABS: Troponin-I High Sensitivity < 2.7 ng/L (<3.5-35.0)
[2024-06-29 20:14] LABS: Influenza A PCR NEGATIVE (Negative); Influenza B PCR NEGATIVE (Negative); Resp Syncy Virus RNA Qual PCR NEGATIVE (Negative); SARS COV2 PCR INHOUSE NEGATIVE (Negative)
[2024-06-29 20:54] VITALS: RESP 20
[2024-06-29] MEDS: droPERidol 5 MG/2 ML VIAL 2.5 MG IVPUSH (21:16)
[2024-06-29 21:29] LABS: Bilirubin Direct 3.6 mg/dL (0.0-0.5)
[2024-06-29 22:00] VITALS: BP 105/62; PULSE 63; RESP 18; TEMP 36.8; O2SAT 99
[2024-06-29 22:10] VITALS: BP 131/85; PULSE 63; RESP 16; TEMP 36.7; O2SAT 98
[2024-06-30] VITALS (7 sets, daily range): BP systolic 118–158; BP diastolic 58–87; PULSE 53–97; RESP 16–20; TEMP 36.3–37.4; O2SAT 95–99
--- NOTE | 2024-06-30 01:16 | P.HPHOSP_ITS ---
History of Present Illness Date of Service: 06/30/24 Attending physician on admission: Ninfa Conley Chief Complaint: Abdominal pain Angus Gimenez is a 33 years old man with past medical history significant for drug abuse on methadone presents to the emergency department complaining of 3 days' history of upper abdominal pain associated with multiple episodes of yellowish nonbloody vomiting. Pain was described as sharp, intense without radiations. He denied diarrhea or constipation. Last bowel movement was today and was normal. Six days ago, he ingested two capsules with crack in it because he was about to get rested. He has not seen the capsules in his stools. He denied any symptoms such as palpitations, dizziness, headache, chest pain or shortness on breath. Denies fever or chills. Did not report any acute cardiopulmonary or genitourinary symptoms. He has an ongoing crack user, last use was this morning. Denied alcohol abuse. He has no past surgical history. In the ED, he was found to have normal vital signs. Blood workup is remarkable for leukocytosis of 13.0. Hemoglobin platelets are normal. There are no electrolyte imbalances. Renal function is normal. LFTs are elevated (elevated direct bilirubin). Lipase is normal. Abdominal pelvis CT scan with IV contrast showed mild diffuse intrahepatic biliary duct dilatation, moderate diffuse dilatation of the CBD. ED tx: NS 1 L bolus, Dilaudid 2 mg IV, Benadryl 12.5 mg IV, Zofran 4 mg IV, droperidol 2.5 mg IV. Review of Systems 2 Review of Systems: All 12 systems were reviewed and normal except as noted in HPI. [facility] Medical History (Updated 06/30/24 @ 01:52 by Ninfa Conley MD) Polysubstance abuse No known health problems Social History Alcohol intake: current Use of substances other than those prescribed or required for medical reasons: No Substance Use Type: Marijuana Advance Directives: No Advance Directives Information Provided: No Meds Allergies Allergy/AdvReac Type Severity Reaction Status Date / Time No Known Allergies Allergy Verified 06/29/24 18:17 [No Known Allergies*] Active Medications: Current Medications Acetaminophen (Acetaminophen 325 Mg Tablet) 975 mg PO Q6H PRN PRN Reason: Pain, Mild (Pain Scale 1-3), fever or headache Hydromorphone HCl (Hydromorphone Hcl 1 Mg/Ml Syringe) 1 mg IVPUSH Q3H PRN; Protocol PRN Reason: Pain, Severe (Pain Scale 7-10) Lactated Ringer's (Lr) 1,000 mls @ 125 mls/hr IVCONT .Q8H VICENTE Methadone HCl (Methadone Hcl 20 Mg/2 Ml Oral.Conc) 40 mg PO DAILY [facility] Ondansetron HCl (Ondansetron Hcl 4 Mg/2 Ml Vial) 4 mg IVPUSH Q8H PRN PRN Reason: Nausea and Vomiting Sodium Chloride (0.9 % Sodium Chloride Flush 3 Ml Syringe) 3 ml IVFLUSH QSHIFT VICENTE Physical Exam 2 Vital Signs and Narrative: Vital Signs: Last Vital Signs Temp 98.0 F 06/29/24 22:10 Pulse 63 06/29/24 22:10 Resp 16 06/29/24 22:10 BP 131/85 06/29/24 22:10 Pulse Ox 98 06/29/24 22:10 O2 Del Method Room Air 06/29/24 22:10 BMI result Body Mass Index 27.4 Constitutional - Awake and Alert, No apparent distress. Cooperative. HEENT - PERRL, EOMI. Dry oral mucosa. Scleral icterus. Heart - S1S2, RRR, No murmurs. Lungs - Normal lung expansion, Normal respiratory effort, No respiratory distress, CTA bilaterally Abdomen - Non distention. Increased bowel sounds. Epigastric/right upper quadrant tenderness. No rebound. No guarding. - No CVA tenderness Extremities - no calf tenderness bilaterally, no swelling Musculoskeletal - Normal inspection, normal ROM Skin - Warm/Dry Neurological - Alert & oriented x3. No focal weakness grossly noted. Psychological - Appropriate affect Results Labs 06/29/24 19:30 06/29/24 19:30 Labs: Laboratory Results - last 24 hr 06/29/24 19:30 MCV 83.4 MCH 28.6 MCHC 34.3 RDW 13.0 Plt Count 246 MPV 9.9 Immature Gran % (Auto) 0.5 H Neut % (Auto) 81.8 H Lymph % (Auto) 10.5 L [place] % (Auto) 6.6 Eos % (Auto) 0.3 Baso % (Auto) 0.3 Lymph # (Auto) 1.4 [place] # (Auto) 0.9 Eos # (Auto) 0.0 Baso # (Auto) 0.0 Abs Immat Gran (auto) 0.07 H Absolute Neuts (auto) 10.6 H Absolute Nucleated RBC 0.000 Nucleated RBC % (auto) 0.0 Anion Gap 16 Estim Creat Clear Calc 87.0 Estimated GFR > 60 Random Glucose 111 Calcium 9.8 Magnesium 2.4 Total Bilirubin 4.8 H Direct Bilirubin 3.6 H AST 112 H ALT 235 H Alkaline Phosphatase 119 H Troponin I High Sens < 2.7 Total Protein 8.4 H Albumin 4.7 Lipase 30 Influenza Type A (PCR) NEGATIVE Influenza Type B (PCR) NEGATIVE RSV RNA Qual (PCR) NEGATIVE SARS-CoV-2 RNA (RT-PCR) NEGATIVE Imaging Radiologist's Impressions: Impressions Abdomen/Pelvis CT 06/29/24 19:31 IMPRESSION: *No definitive acute abnormalities identified. No evidence of intestinal obstruction. No radiodense ingested foreign body visualized. *Mild diffuse intrahepatic biliary duct dilatation and moderate diffuse dilatation of the common bile duct. Findings are new compared with 08/18/2020 and could represent functional obstruction the region of the sphincter of bony or possible obstruction related to otherwise occult choledocholithiasis. *L4-L5 moderate posterior broad-based disc bulge. Electronically signed by: Thang Loya MD 06/29/2024 11:28 PM EDT RP Assessment and Plan (1) Biliary obstruction: Status: Acute (2) Elevated LFTs: Status: Acute (3) Abdominal pain: Qualifiers: Abdominal location: unspecified location Qualified Code(s): R10.9 - Unspecified abdominal pain Status: Acute (4) Nausea and vomiting: Qualifiers: Vomiting type: unspecified Qualified Code(s): R11.2 - Nausea with vomiting, unspecified Status: Acute (5) Cocaine use disorder: Status: Acute (6) Polysubstance abuse: Status: Inactive Plan Angus Gimenez is a 33 y/o man admitted with: * Abdominal pain, nausea, vomiting + CBD dilatation: Functional obstruction vs occult choledocholithiasis. Admit to hospitalist service. NPO. Continue IV fluids, antiemetics and IV pain meds. Check abdominal US. GI consult. * Foreing bodies ingestion 6 days ago (2 capsules of crack). He said he has not seen them coming out. No signs or symptoms of cocaine overdose. * History of drug abuse. Continue methadone 40 mg PO daily (last use yesterday AM). * Cocaine use. DVT prophylaxis: SCDs, early ambulation. Code status: Full Patient will need hospitalization for at least 2 midnights for abdominal pain treatment with pain control and IV hydration. He will need evaluation by subspecialty for possible EGD. Quality Stroke Does the patient have a stroke diagnosis?: No VTE Prior VTE?: No VTE Risk Level:: Medical - moderate - high VTE Device Contraindication: N/A - Device Ordered VTE Drug Contraindication: Treatment Not Indicated
[2024-06-30] MEDS: Lactated Ringers 1,000 ML 125 ML IVCONT ×3 (01:56→15:55)
[2024-06-30 04:04] LABS: Appearance Urine Clear; Color Urine Dark Yellow; Glucose Urine UA Negative (Negative); Leukocyte Esterase Urine Negative (Negative); Nitrite Urine Negative (Negative); Specific Gravity - Urine >= 1.030 (1.005-1.025); Urine Blood Negative (Negative); Urine Ketones 40 mg/dL (Negative); Urine Protein Negative (Neg-Trace)
--- NOTE | 2024-06-30 05:21 | PC.NURSE ---
[facility] has been getting his Methadone 40 mg from [facility].
--- NOTE | 2024-06-30 08:57 | PHA.MEDREC ---
Addendum entered by Thanh Sousa 06/30/24 09:41: reviewed, waiting on nursing to obtain methadone verification Original Note: Pharmacy Consult ? Medication Reconciliation Pharmacy has completed the medication reconciliation. Patient states only on methadone 40 mg daily. Reports received at assisted and last dose was monday.
[2024-06-30] MEDS: HYDROmorphone HCl 1 MG/ML SYRINGE IVPUSH (09:31)
[2024-06-30] MEDS: methADONE HCl 20 MG/2 ML ORAL.CONC 30 MG PO (10:28)
[2024-06-30] MEDS: methADONE HCl 20 MG/2 ML ORAL.CONC 10 MG PO (10:28)
[2024-06-30 10:43] LABS: MANUAL DIFF FLAG NO
[2024-06-30 10:57] LABS: Basophils Percent Auto 0.2 % (0-2); Eosinophils Absolute Auto 0.1 X10*3/uL (0.0-0.4); Eosinophils Percent Auto 1.1 % (0-4); Hematocrit 41.4 % (42.0-52.0); Hemoglobin 13.7 g/dl (14.0-18.0); Imm Gran Abs Auto 0.04 X10*3/uL (0.00-0.03); Imm Gran Pct Auto 0.4 % (0.0-0.4); Lymphocytes Absolute Auto 2.1 X10*3/uL (1.2-4.9); Lymphocytes Percent Auto 19.9 % (20-40); Mean Corpuscular HGB Conc 33.1 g/dl (31.0-36.0); Mean Corpuscular Hemoglobin 28.2 pg (27.0-33.0); Mean Corpuscular Volume 85.4 fL (80.0-98.0); Mean Platelet Volume 10.6 fL (9.4-12.4); Monocytes Percent Auto 9.5 % (2-11); Neutrophils Absolute Auto 7.3 x10*3/uL (2.0-8.3); Neutrophils Percent Auto 68.9 % (45-73); Platelet Count 251 X10*3/uL (160-400); Red Blood Count 4.85 X10*6/uL (4.60-5.80); Red Cell Distribution Width 13.2 % (11.0-16.0); White Blood Count 10.5 X10*3/uL (4.8-10.8)
[2024-06-30 11:13] LABS: Alanine Aminotransferase 204 U/L (0-40); Albumin Level 4.1 g/dL (3.5-5.0); Alkaline Phosphatase 106 U/L (39-117); Anion Gap 16 (12-20); Aspartate Amino Transferase 94 U/L (5-37); Bilirubin Total 4.5 mg/dL (0.0-1.0); Blood Urea Nitrogen 12 mg/dL (9-16); Calcium 9.9 mg/dL (8.4-10.2); Carbon Dioxide 26 mmol/L (22-29); Chloride 103 mmol/L (96-108); Creatinine Clr Calc Pharmacy 116.7; Estimated Glomerular Filt Rate > 60; Glucose Random 76 mg/dL (60-115); Potassium 3.9 mmol/L (3.3-5.1); Sodium 141 mmol/L (135-145); Total Protein 7.5 g/dL (6.5-8.0)
--- NOTE | 2024-06-30 12:18 | PM.EVENT ---
Event Note Date of Service: 06/30/24 Event Note: seen and evaluated feels better with no reported pain asking for his methadone start diet for now US abd reporting Mild intrahepatic biliary ductal dilatation and mildly dilated common bile duct measuring up to 0.9 cm. check MRCP GI to follow NPO post midnight Time Spent With Patient Time: Total time managing care of this patient today ____ minutes.
--- NOTE | 2024-06-30 14:24 | MHC.CM.PN ---
Male 33 DX Choledocholithaisis Plan is [facility] tomorrow. Recently released from [facility](2days ago) He states that he lives alone on [address]. He is independent, no AD. He states that he would like to receive Methadone from [facility]. DP home self care. [facility] is pts choice as his [facility] dispens[facility]. Patient states that he has transport home. He was informed that [facility] shuttle may be available if he can not get a ride at discharge.
--- NOTE | 2024-06-30 18:59 | PM.EVENT ---
Event Note Date of Service: 06/30/24 Event Note: Addiction consult placed Patient reporting to clincal staff that he was recently incarcerated on receiving methadone 40mg daily Methadone ordered this morning by hospitalist verification does not appear to have been completed Plan: -methadone 40mg QD ordered to avoid withdrawal sx -will be seen in the AM by Recovery team Time Spent With Patient Time: Total time managing care of this patient today ____ minutes.
[2024-07-01] MEDS: Lactated Ringers 1,000 ML 125 ML IVCONT ×2 (00:13→07:59)
[2024-07-01 03:19] VITALS: BP 120/64; PULSE 91; RESP 18; TEMP 36.3; O2SAT 97
[2024-07-01 06:22] LABS: Hemoglobin 12.9 g/dl (14.0-18.0); Mean Corpuscular HGB Conc 33.1 g/dl (31.0-36.0); Mean Corpuscular Hemoglobin 28.7 pg (27.0-33.0); Mean Corpuscular Volume 86.7 fL (80.0-98.0); Mean Platelet Volume 10.2 fL (9.4-12.4); Platelet Count 228 X10*3/uL (160-400); Red Cell Distribution Width 13.2 % (11.0-16.0); White Blood Count 10.2 X10*3/uL (4.8-10.8)
[2024-07-01 06:40] LABS: Alanine Aminotransferase 128 U/L (0-40); Albumin Level 3.2 g/dL (3.5-5.0); Alkaline Phosphatase 98 U/L (39-117); Anion Gap 8 (12-20); Aspartate Amino Transferase 35 U/L (5-37); Bilirubin Direct 0.7 mg/dL (0.0-0.5); Blood Urea Nitrogen 14 mg/dL (9-16); Calcium 8.4 mg/dL (8.4-10.2); Carbon Dioxide 26 mmol/L (22-29); Chloride 110 mmol/L (96-108); Creatinine Clr Calc Pharmacy 125.2; Estimated Glomerular Filt Rate > 60; Glucose Random 106 mg/dL (60-115); Potassium 3.7 mmol/L (3.3-5.1); Sodium 140 mmol/L (135-145); Total Protein 5.8 g/dL (6.5-8.0)
--- NOTE | 2024-07-01 07:06 | PM.GICN ---
History of Present Illness Data of Consult Service Date: 07/01/24 Requesting physician: Edin Ortez Primary Care Provider: [facility] Reason for consult: abn LFT 33 years old man with hx of drug abuse on methadone who I am seeing for assessment of abn LFT. Patient presented with several hours of sharp and crampy RUq pain with multiple episodes of yellowish nonbloody vomiting. the pain was 10/10 and without radiation, not worse with food and no relieving factors. He denied diarrhea or constipation. Last bowel movement was normal without blood or melena.He denied any symptoms such as palpitations, dizziness, headache, chest pain or shortness on breath. Denies fever or chills. He does use cocaine, denies alcohol use today he feels back to normal and wants to eat and go home. LABS:LFTs are elevated (elevated direct bilirubin). Lipase is normal. bili went from 4--->1 today Imaging: Abdominal pelvis CT scan with IV contrast: mild diffuse intrahepatic biliary duct dilatation, moderate diffuse dilatation of the CBD. US - mild CBD dilation, gallstones in GB Review of Systems Review of Systems: Constitutional : No Weight loss, No Fever, No Chills ENT/Mouth : No sore throat, No Rhinorrhea Eyes: No Swelling, No Redness Cardiovascular : No Chest Pain, No SOB, No Edema Respiratory : No Cough, No Sputum, No Wheezing Gastrointestinal : see HPI Genitourinary : NO Dysuria, No Urinary Frequency, No Hematuria, No Urgency Musculoskeletal : no joint pain, No Myalgias, No Joint Swelling Skin : No Skin Lesions, No rash Neuro : No Weakness, No Numbness, No Dizziness, No Headache Psych : No Anxiety/Panic, No Depression Heme/Lymph: No Bruising, No Lymphadenopathy Endocrine : No Polyuria, No Polydipsia All other systems reviewed and are negative. [facility] Past Medical History Medical History (Updated 07/01/24 @ 14:30 by Anish Hernández MD) Polysubstance abuse No known health problems Family History Pertinent family history: no Fh of liver dz Social History Social History Household Members: None Housing: Apartment Do you presently have visiting nurse or other home services: No Alcohol intake: current Patient Tobacco Use Status: Current everyday Tobacco user Tobacco use type: Cigarette Cigarette Packs Per Day: 1 Cigarettes Per Day: 20.0 Substance Use Type: Crack/Cocaine and Marijuana service: No Meds Allergies Allergy/AdvReac Type Severity Reaction Status Date / Time No Known Allergies Allergy Verified 06/29/24 18:17 [No Known Allergies*] Active Medications: Current Medications Acetaminophen (Acetaminophen 325 Mg Tablet) 975 mg PO Q6H PRN PRN Reason: Pain, Mild (Pain Scale 1-3), fever or headache Hydromorphone HCl (Hydromorphone Hcl 1 Mg/Ml Syringe) 1 mg IVPUSH Q3H PRN; Protocol PRN Reason: Pain, Severe (Pain Scale 7-10) Last Admin: 06/30/24 09:31 Dose: 1 mg Lactated Ringer's (Lr) 1,000 mls @ 125 mls/hr IVCONT .Q8H VICENTE Last Admin: 07/01/24 00:13 Dose: 125 mls/hr Methadone HCl (Methadone Hcl 20 Mg/2 Ml Oral.Conc) 40 mg PO DAILY@0800 [facility] Ondansetron HCl (Ondansetron Hcl 4 Mg/2 Ml Vial) 4 mg IVPUSH Q8H PRN PRN Reason: Nausea and Vomiting Sodium Chloride (0.9 % Sodium Chloride Flush 3 Ml Syringe) 3 ml IVFLUSH QSHIFT [facility] Last Admin: 07/01/24 01:03 Dose: Not Given Home Medications ?Medication ?Instructions ?Recorded ?Confirmed ?Last Taken ?Type methadone 10 mg/5 mL oral solution 40 mg PO DAILY 06/30/24 Unknown History Physical Exam Vital Signs: Vital Signs: Last Vital Signs Temp 97.3 F 07/01/24 03:19 Pulse 91 07/01/24 03:19 Resp 18 07/01/24 03:19 BP 120/64 07/01/24 03:19 Pulse Ox 97 07/01/24 03:19 O2 Del Method Room Air 07/01/24 03:19 BMI result Body Mass Index 27.4 EXAM: GENERAL: The patient is well developed and nontoxic. VITAL SIGNS:see workflow HEENT: Nonicteric sclerae, PERRLA, EOMI. Oropharynx clear. Moist mucous membranes. Conjunctivae appear well perfused. No thyroid mass. CHEST: Chest wall is nontender. HEART: Regular rate and rhythm without murmurs. LUNGS: Clear to auscultation bilaterally. ABDOMEN: Soft, positive bowel sounds, nontender, no organomegaly.no flank tenderness SKIN: No rash, no excessive bruising, petechiae, or purpura. NEUROLOGIC: Cranial nerves II-XII intact without motor/sensory deficit. Psych: normal affect Results Labs 07/01/24 05:27 07/01/24 05:27 Labs: Short CBC 06/30/24 07/01/24 Range/Units 09:07 05:27 WBC 10.5 10.2 (4.8-10.8) X10*3/uL Hgb 13.7 L 12.9 L (14.0-18.0) g/dl Hct 41.4 L 39.0 L (42.0-52.0) % Plt Count 251 228 (160-400) X10*3/uL BMP 06/30/24 07/01/24 09:07 05:27 Sodium 141 140 Potassium 3.9 3.7 Chloride 103 110 H Carbon Dioxide 26 26 BUN 12 14 Creatinine 0.88 0.82 Calcium 9.9 8.4 D Liver Function 06/30/24 07/01/24 Range/Units 09:07 05:27 Total Bilirubin 4.5 H 1.0 (0.0-1.0) mg/dL Direct Bilirubin 0.7 H (0.0-0.5) mg/dL AST 94 H 35 (5-37) U/L ALT 204 H 128 H (0-40) U/L Alkaline Phosphatase 106 98 (39-117) U/L Albumin 4.1 3.2 L (3.5-5.0) g/dL Imaging US - abdomen: Attestation: I personally reviewed and interpreted this imaging study as follows: (densities seen in GB, CBD normal, liver nml) Assessment and Plan (1) Gall stone: Qualifiers: Cholecystitis presence: without cholecystitis Status: Acute (2) Elevated LFTs: Status: Acute Plan 1/ Symptomatic gallstones with temp biliary obstruction probably passed a stone, back to baseline now PLAN: 1/ surgical consult 2/ advance diet and if normal, home 3/ pls check hep serologies due to cocaine use 4/ if pain recurs or worsening LFT then can consider MRCP vs ERCP Procedures Date of Service Date of Service: 07/01/24
[2024-07-01 07:26] VITALS: BP 132/77; PULSE 55; RESP 16; TEMP 36.6; O2SAT 98
[2024-07-01] MEDS: methADONE HCl 20 MG/2 ML ORAL.CONC 40 MG PO (08:00)
--- NOTE | 2024-07-01 09:10 | P.CONGS_ITS ---
History of Present Illness Consult details Consult date: 07/01/24 <Tim Bingham MD - Last Filed: 07/01/24 09:17> Reason for consult: gallstones <Elvia Mack PA-C - Last Filed: 07/01/24 10:33> Narrative: Patient is a 33-year-old male who presents with upper abdominal pain over 3 days time. He associated nausea and vomiting. Otherwise regular bowel habits. No sick contacts. No diarrhea. No usual diet aside from ingesting crack earlier in the week to avoid having this in his possession while he was going to be arrested. Workup demonstrates cholelithiasis, elevated bilirubin, dilated extrahepatic biliary system. Bilirubin was markedly elevated 4.8, then 4.5, and is currently normal. This is suggesting passage of common bile duct stone Chart was reviewed patient evaluated. Polysubstance abuser. <Tim Bingham MD - Last Filed: 07/01/24 09:17> Patient is a 33-year-old male on methadone who presented to the ED with RUQ abdominal pain over 3 days time. He associated nausea and vomiting. Otherwise regular bowel habits. No sick contacts. No diarrhea. No usual diet aside from ingesting crack earlier in the week to avoid having this in his possession while he was going to be arrested. Workup demonstrates cholelithiasis, elevated bilirubin, dilated extrahepatic biliary system. Bilirubin was markedly elevated 4.8, then 4.5, and is currently normal. This is suggesting passage of common bile duct stone. This morning patient denies any abdominal pain. He has been tolerating a solid diet without pain, nausea or vomiting. He wants to go home. <Elvia Mack PA-C - Last Filed: 07/01/24 10:33> Review of Systems 2 Constitutional: Constitutional: Denies chills and Denies fever(s) < CODY Mccarthy Last Filed: 07/01/24 10:33> ENT: Denies dizziness <CODY Mccarthy Last Filed: 07/01/24 10:33> Cardiovascular: Cardiovascular: Denies chest pain <LORETA Mccarthy Last Filed: 07/01/24 10:33> Gastrointestinal: Gastrointestinal: Reports as per HPI <Elvia Mack PA-C - Last Filed: 07/01/24 10:33> Genitourinary: Genitourinary: Denies dysuria <Elvia Mack PA-C - Last Filed: 07/01/24 10:33> Integumentary/Breasts: Skin/Breast: Denies rash and Denies jaundice < Elvia Mack PA-C - Last Filed: 07/01/24 10:33> Neurologic: Denies dizziness <Elvia Mack PA-C - Last Filed: 07/01/24 10:33> PMFSH Past Medical History Medical History: Medical History (Updated 07/01/24 @ 11:46 by Tierra Paiz CNP) Polysubstance abuse No known health problems <Tim Bingham MD - Last Filed: 07/01/24 09:17> Social History Social History: Social History Household Members: None Housing: Apartment Do you presently have visiting nurse or other home services: No Alcohol intake: current Patient Tobacco Use Status: Current everyday Tobacco user Tobacco use type: Cigarette Cigarette Packs Per Day: 1 Cigarettes Per Day: 20.0 Substance Use Type: Crack/Cocaine and Marijuana service: No <Tim Bingham MD - Last Filed: 07/01/24 09:17> Meds Allergies/Adverse reactions: Allergies Allergy/AdvReac Type Severity Reaction Status Date / Time No Known Allergies Allergy Verified 06/29/24 18:17 [No Known Allergies*] <Tim Bingham MD - Last Filed: 07/01/24 09:17> Active Medications: Current Medications Acetaminophen (Acetaminophen 325 Mg Tablet) 975 mg PO Q6H PRN PRN Reason: Pain, Mild (Pain Scale 1-3), fever or headache Hydromorphone HCl (Hydromorphone Hcl 1 Mg/Ml Syringe) 1 mg IVPUSH Q3H PRN; Protocol PRN Reason: Pain, Severe (Pain Scale 7-10) Last Admin: 06/30/24 09:31 Dose: 1 mg Lactated Ringer's (Lr) 1,000 mls @ 125 mls/hr IVCONT .Q8H VICENTE Last Admin: 07/01/24 07:59 Dose: 125 mls/hr Methadone HCl (Methadone Hcl 20 Mg/2 Ml Oral.Conc) 40 mg PO DAILY@0800 [facility] Last Admin: 07/01/24 08:00 Dose: 40 mg Ondansetron HCl (Ondansetron Hcl 4 Mg/2 Ml Vial) 4 mg IVPUSH Q8H PRN PRN Reason: Nausea and Vomiting Sodium Chloride (0.9 % Sodium Chloride Flush 3 Ml Syringe) 3 ml IVFLUSH QSHIFT [facility] Last Admin: 07/01/24 07:10 Dose: Not Given <Tim Bingham MD - Last Filed: 07/01/24 09:17> Home medications: Home Medications ?Medication ?Instructions ?Recorded ?Confirmed ?Last Taken ?Type methadone 10 mg/5 mL oral solution 40 mg PO DAILY 06/30/24 Unknown History <Tim Bingham MD - Last Filed: 07/01/24 09:17> Physical Exam 2 Vital Signs: Vital Signs: Last Vital Signs Temp 97.9 F 07/01/24 07:26 Pulse 55 07/01/24 07:26 Resp 16 07/01/24 07:26 BP 132/77 07/01/24 07:26 Pulse Ox 98 07/01/24 07:26 O2 Del Method Room Air 07/01/24 07:26 BMI result Body Mass Index 27.4 <Tim Bingham MD - Last Filed: 07/01/24 09:17> Const: General: comfortable, no acute distress and alert <CODY Mccarthy Last Filed: 07/01/24 10:33> Orientation/consciousness: patient oriented x3 <CODY Mccarthy Last Filed: 07/01/24 10:33> Eyes: Sclerae: sclerae normal (anicteric) <CODY Mccarthy Last Filed: 07/01/24 10:33> Resp: Effort & Inspection: normal respiratory effort <CODY Mccarthy Last Filed: 07/01/24 10:33> GI: Inspection: Yes normal to inspection and No distended <CODY Mccarthy Last Filed: 07/01/24 10:33> Palpation (GI): Soft to palpation, nontender and no guarding <Elvia Mack PA-C - Last Filed: 07/01/24 10:33> Percussion: Yes normal to percussion <CODY Mccarthy Last Filed: 07/01/24 10:33> Skin: General skin exam: no rashes or lesions noted and no jaundice < Elvia Mack PA-C - Last Filed: 07/01/24 10:33> Neuro: General: patient oriented x3 and moves all extremities <Elvia Mack PA-C - Last Filed: 07/01/24 10:33> Results Labs Result diagrams: 07/01/24 05:27 07/01/24 05:27 <Tim Bingham MD - Last Filed: 07/01/24 09:17> Labs: Abnormal lab results 06/30/24 07/01/24 Range/Units 09:07 05:27 RBC 4.50 L (4.60-5.80) X10*6/uL Hgb 13.7 L 12.9 L (14.0-18.0) g/dl Hct 41.4 L 39.0 L (42.0-52.0) % Lymph % (Auto) 19.9 L (20-40) % Abs Immat Gran (auto) 0.04 H (0.00-0.03) X10*3/uL Chloride 110 H (96-108) mmol/L Anion Gap 8 L (12-20) Total Bilirubin 4.5 H (0.0-1.0) mg/dL Direct Bilirubin 0.7 H (0.0-0.5) mg/dL AST 94 H (5-37) U/L ALT 204 H 128 H (0-40) U/L Total Protein 5.8 L (6.5-8.0) g/dL Albumin 3.2 L (3.5-5.0) g/dL Short CBC 06/30/24 07/01/24 Range/Units 09:07 05:27 WBC 10.5 10.2 (4.8-10.8) X10*3/uL Hgb 13.7 L 12.9 L (14.0-18.0) g/dl Hct 41.4 L 39.0 L (42.0-52.0) % Plt Count 251 228 (160-400) X10*3/uL BMP 06/30/24 07/01/24 09:07 05:27 Sodium 141 140 Potassium 3.9 3.7 Chloride 103 110 H Carbon Dioxide 26 26 BUN 12 14 Creatinine 0.88 0.82 Calcium 9.9 8.4 D Liver Function 06/30/24 07/01/24 Range/Units 09:07 05:27 Total Bilirubin 4.5 H 1.0 (0.0-1.0) mg/dL Direct Bilirubin 0.7 H (0.0-0.5) mg/dL AST 94 H 35 (5-37) U/L ALT 204 H 128 H (0-40) U/L Alkaline Phosphatase 106 98 (39-117) U/L Albumin 4.1 3.2 L (3.5-5.0) g/dL Urine 06/30/24 Range/Units 03:57 Urine Color Dark Yellow Urine Appearance Clear Urine pH 7.0 (5.0-9.0) Ur Specific [place] >= 1.030 H (1.005-1.025) Urine Protein Negative (Neg-Trace) mg/dL Urine Glucose (UA) Negative (Negative) mg/dL All other labs normal. <Tim Bingham MD - Last Filed: 07/01/24 09:17> Imaging Abdomen CT scan report/results: report reviewed and image reviewed <Elvia Mack PA-C - Last Filed: 07/01/24 10:33> Assessment and Plan (1) Elevated LFTs: Status: Acute <Tim Bingham MD - Last Filed: 07/01/24 09:17> 33 year old male with hx of polysubstance abuse on methadone presenting with acute onset RUQ abd pain with elevated LFTs. LFTs have since normalized and his symptoms have resolved suggesting passed CBD stone. He is tolerating solid diet without recurrence of pain. His abdomen is benign and nontender. Discussed proceeding with laparoscopic cholecystectomy possible open to prevent recurrence of CBD stone which can be done during admission or scheduled as outpatient. He would like to go home and have this scheduled electively. Can f/u in office to schedule. <Elvia Mack PA-C - Last Filed: 07/01/24 10:33> Procedures Date of Service Date of Service: 07/01/24 <Tim Bingham MD - Last Filed: 07/01/24 09:17> 07/01/24 <Elvia Mack PA-C - Last Filed: 07/01/24 10:33> 07/01/24 <Eric Navarro MD - Last Filed: 07/01/24 12:32>
--- NOTE | 2024-07-01 11:34 | PM.DS ---
DS: Providers Provider Date of Service: 07/01/24 Date of admission: 06/30/24 01:04 Date of discharge: 07/01/24 Primary care physician: [facility] Consults: 06/30/24 01:06 Consult to Gastroenterology Routine Consulting Provider: Anish Hernández Reason for consultation: Abd pain, elevated LFTs, CBD dilatation Has provider been notified: No 06/30/24 07:49 Addiction Medicine Routine Consulting Provider: [facility]ing Reason for consultation: methadone dosing, hx substance use 07/01/24 07:28 Consult to General Surgery Routine Consulting Provider: [facility] Reason for consultation: GBS w passed stone and transaminitis for eval DS: Diagnosis Discharge Diagnosis (1) Elevated LFTs: Status: Acute (2) Cocaine use disorder: Status: Acute (3) Nausea and vomiting: Status: Acute (4) Abdominal pain: Status: Acute (5) Gall stone: Status: Acute DS: Summary Hospital Course Hospital Course: Admission note HPI Angus Gimenez is a 33 years old man with past medical history significant for drug abuse on methadone presents to the emergency department complaining of 3 days' history of upper abdominal pain associated with multiple episodes of yellowish nonbloody vomiting. Pain was described as sharp, intense without radiations. He denied diarrhea or constipation. Last bowel movement was today and was normal. Six days ago, he ingested two capsules with crack in it because he was about to get rested. He has not seen the capsules in his stools. He denied any symptoms such as palpitations, dizziness, headache, chest pain or shortness on breath. Denies fever or chills. Did not report any acute cardiopulmonary or genitourinary symptoms. He has an ongoing crack user, last use was this morning. Denied alcohol abuse. He has no past surgical history. In the ED, he was found to have normal vital signs. Blood workup is remarkable for leukocytosis of 13.0. Hemoglobin platelets are normal. There are no electrolyte imbalances. Renal function is normal. LFTs are elevated (elevated direct bilirubin). Lipase is normal. Abdominal pelvis CT scan with IV contrast showed mild diffuse intrahepatic biliary duct dilatation, moderate diffuse dilatation of the CBD. ED tx: NS 1 L bolus, Dilaudid 2 mg IV, Benadryl 12.5 mg IV, Zofran 4 mg IV, droperidol 2.5 mg IV. Hospital course The patient was admitted for evaluation of abdominal pain with elevated liver enzymes and a CT scan suggestive of gallbladder stone disease and dilated CBD. Abdominal US showed GBS with no obstruction or signs of acute cholecystitis. EValuated by GI who recommended MRCP but then decided to hold on it as pain resolved and LFT recovered back to normal. It seems the patient has passed a stone through his CBD. Discussed with surgery who evaluated him for cholecystectomy. He agreed to follow as outpatient rather than doing it during this admission. He was also advised to quit all kinds of drugs. Addiction team consulted to provide advice. Discharge plan We Advise you complete abstinence from drugs Low Fat diet Stay well hydrated Advil for pain as needed Follow with dr Bingham in office for outpatient Cholecystectomy (Gallbladder removal) The patient made quicker than expected recovery and will not need 2 overnight hospital stay. Time Attestation Discharge Coordination Time (in mins): 38 Quality: Safe Use of Opioids Does Pt have an Active Cancer Diagnosis on the Problem List?: No Quality: Stroke Does the patient have a stroke diagnosis?: No Physical Exam Vital Signs: Vital Signs: Last Vital Signs Temp 97.9 F 07/01/24 07:26 Pulse 55 07/01/24 07:26 Resp 16 07/01/24 07:26 BP 132/77 07/01/24 07:26 Pulse Ox 98 07/01/24 07:26 O2 Del Method Room Air 07/01/24 07:26 BMI result Body Mass Index 27.4 Const: Other: Constitutional : Awake, interactive, not in distress Neck : Normal inspection, Supple Cardiovascular : RRR, no JVP, no lower extremity edema Respiratory : good bilateral air entry, no crackles, wheezes or rhonchi Gastrointestinal: soft, lax, Normal bowel sounds, Non tender Skin : Warm, Dry Neurological : Alert & oriented x3, No focal deficit DS: Data Data Completed and Pending Labs on day of discharge: Laboratory Results - last 24 hr 07/01/24 05:27 WBC 10.2 RBC 4.50 L Hgb 12.9 L Hct 39.0 L MCV 86.7 MCH 28.7 MCHC 33.1 RDW 13.2 Plt Count 228 MPV 10.2 Absolute Nucleated RBC 0.000 Nucleated RBC % (auto) 0.0 Sodium 140 Potassium 3.7 Chloride 110 H Carbon Dioxide 26 Anion Gap 8 L BUN 14 Creatinine 0.82 Estim Creat Clear Calc 125.2 Estimated GFR > 60 Random Glucose 106 Calcium 8.4 D Total Bilirubin 1.0 Direct Bilirubin 0.7 H AST 35 ALT 128 H Alkaline Phosphatase 98 Total Protein 5.8 L Albumin 3.2 L Imaging Chest x-ray: Radiologist's impression: ITS Impressions Abdomen/Pelvis CT 06/29/24 19:31 IMPRESSION: *No definitive acute abnormalities identified. No evidence of intestinal obstruction. No radiodense ingested foreign body visualized. *Mild diffuse intrahepatic biliary duct dilatation and moderate diffuse dilatation of the common bile duct. Findings are new compared with 08/18/2020 and could represent functional obstruction the region of the sphincter of bony or possible obstruction related to otherwise occult choledocholithiasis. *L4-L5 moderate posterior broad-based disc bulge. Electronically signed by: Thang Loya MD 06/29/2024 11:28 PM EDT RP Abdomen Ultrasound 06/30/24 08:36 IMPRESSION: 1. Cholelithiasis without evidence of acute cholecystitis. 2. Mild intrahepatic biliary ductal dilatation and mildly dilated common bile duct measuring up to 0.9 cm. Recommend correlation with liver function tests. If there is concern for biliary obstruction, consider MRCP for further evaluation. Electronically signed by: Andreina Rivera MD 06/30/2024 12:15 PM EDT RP Discharge Plan Discharge Anticipated Discharge Date/Time: 07/01/24 11:31 Patient Disposition: Home, Self-Care Discharge Diagnosis: Gallbladder stone with passing stone Referrals: [facility] [Primary Care Provider] - 1 Week Eric Navarro MD [Physician] - 1 Week Discharge Medications: Continued methadone 10 mg/5 mL Solution 40 mg PO DAILY Discharge Orders: Discharge Order (Routine); Ordered 07/01/24 Ordered By: Edin Ortez Diet: Low fat, low cholesterol Activity on Discharge: As tolerated Stand Alone Forms: Patient Portal Discharge page Print Language: Sudanese Care Plan Goals: We Advise you complete abstinence from drugs Low Fat diet Stay well hydrated Advil for pain as needed Follow with dr Bingham in office for outpatient Cholecystectomy (Gallbladder removal) Health Concerns: Read below Plan of Treatment: Read below Assessment: Read below
--- NOTE | 2024-07-01 11:45 | HO.ADDICTCON ---
History of Present Illness Date of Service: 07/01/2024 Chief Complaint: Choledocholithiasis Reason for Consult: OUD Sources of Information: patient interviewed and chart reviewed HPI Narrative: Patient is a 33 year old Kinyarwanda speaking male medically admitted with abdominal pain and elevated bili During admission he reported that he was recently released from incarceration and while incarcerated was receiving methadone 40mg daily He received 40mg QD over the weekend Seen this morning in room 358. He was awake, alert, and dressed ready for discharge. He was pleasant but somewhat guarded when discussing substance use He denied any substance use Reports that he was planning to continue going to [facility] OT Does not have stable housing, but his ex GF was going to help him out today. He has a rn recovery in the community as well No withdrawal sx noted or reported Review of Systems Constitutional: Reports as per HPI Diagnostics Vital Signs (24Hr): Vital Signs - 24 hr 06/30/24 12:00 06/30/24 15:20 06/30/24 19:45 Temperature 97.8 F 98 F 98.0 F Pulse Rate 97 91 92 Respiratory Rate 16 18 20 Blood Pressure 128/58 L 120/65 118/61 Pulse Oximetry 97 96 95 Oxygen Delivery Method Room Air Room Air Room Air 06/30/24 23:28 07/01/24 03:19 07/01/24 07:26 Temperature 97.3 F 97.3 F 97.9 F Pulse Rate 84 91 55 Respiratory Rate 20 18 16 Blood Pressure 118/60 120/64 132/77 Pulse Oximetry 96 97 98 Oxygen Delivery Method Room Air Room Air Room Air BMI result Body Mass Index 27.4 Labs 07/01/24 05:27 07/01/24 05:27 Labs: Laboratory Results - last 48 hr 06/29/24 06/30/24 06/30/24 19:30 03:57 09:07 WBC 13.0 H 10.5 RBC 5.11 4.85 Hgb 14.6 13.7 L Hct 42.6 41.4 L MCV 83.4 85.4 MCH 28.6 28.2 MCHC 34.3 33.1 RDW 13.0 13.2 Plt Count 246 251 MPV 9.9 10.6 Immature Gran % (Auto) 0.5 H 0.4 Neut % (Auto) 81.8 H 68.9 Lymph % (Auto) 10.5 L 19.9 L Citrus % (Auto) 6.6 9.5 Eos % (Auto) 0.3 1.1 Baso % (Auto) 0.3 0.2 Lymph # (Auto) 1.4 2.1 Citrus # (Auto) 0.9 1.0 Eos # (Auto) 0.0 0.1 Baso # (Auto) 0.0 0.0 Abs Immat Gran (auto) 0.07 H 0.04 H Absolute Neuts (auto) 10.6 H 7.3 Absolute Nucleated RBC 0.000 0.000 Nucleated RBC % (auto) 0.0 0.0 Sodium 141 141 Potassium 3.6 3.9 Chloride 101 103 Carbon Dioxide 28 26 Anion Gap 16 16 BUN 13 12 Creatinine 1.18 0.88 Estim Creat Clear Calc 87.0 116.7 Estimated GFR > 60 > 60 Random Glucose 111 76 Calcium 9.8 9.9 Magnesium 2.4 Total Bilirubin 4.8 H 4.5 H Direct Bilirubin 3.6 H AST 112 H 94 H ALT 235 H 204 H Alkaline Phosphatase 119 H 106 Troponin I High Sens < 2.7 Total Protein 8.4 H 7.5 Albumin 4.7 4.1 Lipase 30 Urine Color Dark Yellow Urine Appearance Clear Urine pH 7.0 Ur Specific [place] >= 1.030 H Urine Protein Negative Urine Glucose (UA) Negative Urine Ketones 40 Urine Blood Negative Urine Nitrite Negative Ur Leukocyte Esterase Negative Influenza Type A (PCR) NEGATIVE Influenza Type B (PCR) NEGATIVE RSV RNA Qual (PCR) NEGATIVE SARS-CoV-2 RNA (RT-PCR) NEGATIVE 07/01/24 05:27 WBC 10.2 RBC 4.50 L Hgb 12.9 L Hct 39.0 L MCV 86.7 MCH 28.7 MCHC 33.1 RDW 13.2 Plt Count 228 MPV 10.2 Immature Gran % (Auto) Neut % (Auto) Lymph % (Auto) Citrus % (Auto) Eos % (Auto) Baso % (Auto) Lymph # (Auto) Citrus # (Auto) Eos # (Auto) Baso # (Auto) Abs Immat Gran (auto) Absolute Neuts (auto) Absolute Nucleated RBC 0.000 Nucleated RBC % (auto) 0.0 Sodium 140 Potassium 3.7 Chloride 110 H Carbon Dioxide 26 Anion Gap 8 L BUN 14 Creatinine 0.82 Estim Creat Clear Calc 125.2 Estimated GFR > 60 Random Glucose 106 Calcium 8.4 D Magnesium Total Bilirubin 1.0 Direct Bilirubin 0.7 H AST 35 ALT 128 H Alkaline Phosphatase 98 Troponin I High Sens Total Protein 5.8 L Albumin 3.2 L Lipase Urine Color Urine Appearance Urine pH Ur Specific Tr[place] Urine Protein Urine Glucose (UA) Urine Ketones Urine Blood Urine Nitrite Ur Leukocyte Esterase Influenza Type A (PCR) Influenza Type B (PCR) RSV RNA Qual (PCR) SARS-CoV-2 RNA (RT-PCR) Imaging Radiology Impressions: ITS Impressions Abdomen/Pelvis CT 06/29/24 19:31 IMPRESSION: *No definitive acute abnormalities identified. No evidence of intestinal obstruction. No radiodense ingested foreign body visualized. *Mild diffuse intrahepatic biliary duct dilatation and moderate diffuse dilatation of the common bile duct. Findings are new compared with 08/18/2020 and could represent functional obstruction the region of the sphincter of bony or possible obstruction related to otherwise occult choledocholithiasis. *L4-L5 moderate posterior broad-based disc bulge. Electronically signed by: Thang Loya MD 06/29/2024 11:28 PM EDT RP Abdomen Ultrasound 06/30/24 08:36 IMPRESSION: 1. Cholelithiasis without evidence of acute cholecystitis. 2. Mild intrahepatic biliary ductal dilatation and mildly dilated common bile duct measuring up to 0.9 cm. Recommend correlation with liver function tests. If there is concern for biliary obstruction, consider MRCP for further evaluation. Electronically signed by: Andreina Rivera MD 06/30/2024 12:15 PM EDT RP Mental Status Exam Mental Status Exam Patient Appearance: Well Grooomed and Appropriate Level of Consciousness: Awake and Appropriate Patient Behavior: Appropriate and Guarded Mood Description: Calm Affect Description: Calm Medications Medications Current Medications Acetaminophen (Acetaminophen 325 Mg Tablet) 975 mg PO Q6H PRN PRN Reason: Pain, Mild (Pain Scale 1-3), fever or headache Hydromorphone HCl (Hydromorphone Hcl 1 Mg/Ml Syringe) 1 mg IVPUSH Q3H PRN; Protocol PRN Reason: Pain, Severe (Pain Scale 7-10) Last Admin: 06/30/24 09:31 Dose: 1 mg Lactated Ringer's (Lr) 1,000 mls @ 125 mls/hr IVCONT .Q8H VICENTE Last Infusion: 07/01/24 10:51 Dose: 0 mls/hr Methadone HCl (Methadone Hcl 20 Mg/2 Ml Oral.Conc) 40 mg PO DAILY@0800 [facility] Last Admin: 07/01/24 08:00 Dose: 40 mg Ondansetron HCl (Ondansetron Hcl 4 Mg/2 Ml Vial) 4 mg IVPUSH Q8H PRN PRN Reason: Nausea and Vomiting Sodium Chloride (0.9 % Sodium Chloride Flush 3 Ml Syringe) 3 ml IVFLUSH QSHIFT [facility] Last Admin: 07/01/24 07:10 Dose: Not Given Allergies Allergies Allergy/AdvReac Type Severity Reaction Status Date / Time No Known Allergies Allergy Verified 06/29/24 18:17 [No Known Allergies*] Assessment & Plan Assessment & Plan (1) Opioid use disorder: Status: Chronic Code(s): F11.90 - Opioid use, unspecified, uncomplicated Assessment and Plan: continue methadone 40mg daily last dose letter and take home narcan at discharge predictive maintenance specialist to send referral to [facility] ([facility]) Total time managing care of this patient today ____ minutes. [facility] Past Medical History Medical History (Updated 07/01/24 @ 14:30 by Anish Hernández MD) Polysubstance abuse No known health problems Social History Social History Household Members: None Housing: Apartment Do you presently have visiting nurse or other home services: No Alcohol intake: current Patient Tobacco Use Status: Current everyday Tobacco user Tobacco use type: Cigarette Cigarette Packs Per Day: 1 Cigarettes Per Day: 20.0 Substance Use Type: Crack/Cocaine and Marijuana service: No
[2024-07-01] MEDS: Naloxone HCl Nasal TAKE HOME 4 MG SPRAY 8 MG NOSTRILALT (11:51)
== END 2024-07-01 11:58 | disposition home or self-care (01) ==
LOC: HO.ED 06-30 01:14 → HO.EDOVER 06-30 01:23 → HO.S3 06-30 02:52
PROVIDERS: Physician Assistant Medical; Admitting Provider Internal Medicine; Emergency Provider Emergency Medicine Emergency Medical Services; Visit Provider Student in an Organized Health Care Education/Training Program
DX: K80.20 Calculus of gallbladder without cholecystitis without obstruction (principal); F10.90 Alcohol use, unspecified, uncomplicated; F11.20 Opioid dependence, uncomplicated; F17.210 Nicotine dependence, cigarettes, uncomplicated; Z71.6 Tobacco abuse counseling; Z20.822 Contact with and (suspected) exposure to COVID-19
CPT/HCPCS: 0241U; 36415; 74177; 76705; 80048; 80053; 80076; 81003; 82248; 83690; 83735; 84484; 85025; 85027; 93005; 99285; J1171; J1200; J1790; J2405; J7120

== ENCOUNTER → 2024-06-30 01:04 | Outpatient (BNV) | payer MEDICAID, SELFPAY | PROVIDERS: Admitting Provider Internal Medicine; Emergency Provider Emergency Medicine Emergency Medical Services; Visit Provider Surgery | DX: R79.89 Other specified abnormal findings of blood chemistry (principal) | CPT/HCPCS: 99222 ==

== ENCOUNTER → 2024-06-30 01:04 | Outpatient (BNV) | payer MEDICAID, SELFPAY | PROVIDERS: Admitting Provider Internal Medicine; Emergency Provider Emergency Medicine Emergency Medical Services; Visit Provider Internal Medicine | DX: K83.1 Obstruction of bile duct (principal); R79.89 Other specified abnormal findings of blood chemistry; R10.9 Unspecified abdominal pain; R11.2 Nausea with vomiting, unspecified; F14.10 Cocaine abuse, uncomplicated; F19.10 Other psychoactive substance abuse, uncomplicated | CPT/HCPCS: 99223; 99239; 99499 ==

== ENCOUNTER → 2024-06-30 01:04 | Outpatient (BNV) | payer MEDICAID, SELFPAY | PROVIDERS: Admitting Provider Internal Medicine; Emergency Provider Emergency Medicine Emergency Medical Services; Visit Provider Nurse Practitioner Psychiatric/Mental Health | DX: F11.90 Opioid use, unspecified, uncomplicated (principal) | CPT/HCPCS: 99221; 99499 ==

== ENCOUNTER → 2024-06-30 01:04 | Outpatient (BNV) | payer MEDICAID, SELFPAY | PROVIDERS: Admitting Provider Internal Medicine; Emergency Provider Emergency Medicine Emergency Medical Services; Visit Provider Internal Medicine Gastroenterology | DX: K80.20 Calculus of gallbladder without cholecystitis without obstruction (principal); R79.89 Other specified abnormal findings of blood chemistry | CPT/HCPCS: 99223 ==

== ENCOUNTER 2025-06-18 20:28 | Emergency (ER) | payer MEDICAID, SELFPAY ==
--- NOTE | 2025-06-18 | ECG_ITS ---
Test Reason : SOB Blood Pressure : */* mmHG Vent. Rate : 61 BPM Atrial Rate : 61 BPM P-R Int : 208 ms QRS Dur : 148 ms QT Int : 448 ms P-R-T Axes : 37 22 17 degrees QTcB Int : 450 ms Normal sinus rhythm Right bundle branch block Abnormal ECG When compared with ECG of 29-Jun-2024 18:36, T wave inversion now evident in Anterior leads Referred By: Generic ED Physician Electronically Signed By: Jose De León
[2025-06-18 20:38] VITALS: BP 128/89; PULSE 61; PULSE 80; RESP 16; O2SAT 96; O2SAT 98; BMI 24.4
--- NOTE | 2025-06-18 20:56 | PC.NURSE ---
pt complain of severe headache and b/l eye pain associated with it. denies chest pain. mild SOB initially but pt respirations are even and unlabored, 02 is 96% on r/a.
[2025-06-18 21:05] LABS: MANUAL DIFF FLAG NO
[2025-06-18 21:06] LABS: Hematocrit 41.9 % (42.0-52.0); Hemoglobin 14.5 g/dl (14.0-18.0); Imm Gran Abs Auto 0.04 X10*3/uL (0.00-0.03); Imm Gran Pct Auto 0.3 % (0.0-0.4); Lymphocytes Absolute Auto 3.5 X10*3/uL (1.2-4.9); Mean Corpuscular HGB Conc 34.6 g/dl (31.0-36.0); Mean Corpuscular Hemoglobin 28.3 pg (27.0-33.0); Mean Corpuscular Volume 81.7 fL (80.0-98.0); NRBC Abs Auto 0.000 X10*3/uL (0.0-0.012); NRBC Pct Auto 0.0 /100WBC (0.0-0.2); Platelet Count 217 X10*3/uL (160-400); Red Blood Count 5.13 X10*6/uL (4.60-5.80); White Blood Count 14.4 X10*3/uL (4.8-10.8)
[2025-06-18 21:15] VITALS: BP 128/89; PULSE 61; RESP 16; O2SAT 96
--- OUTSIDE RECORDS SUMMARY | 2025-06-18 21:20 | XMS_ITS | Encounter Summary ---
Author Organization [employer] [facility] Address [address] [place] [address] Care Team Providers Care Glass Inserter Name Role Phone Ronda MedranoP Primary Care Provider Nasreen vailable Encounter Details Date Type Department Care Team (Latest Contact Info) Description 03/01/2021 Abstract [facility] CONVERSIONS Dental, Provider, DDS Social History Tobacco Use Types Packs/Day Years Used Date Smoking Tobacco: Never Assessed Sex and Gender Information Value Date Recorded Sex Assigned at Male 07/25/2022 10:32 AM EDT Legal Sex Male 10:32 AM EDT Gender Identity Male 07/25/2022 10:32 AM EDT Sexual Orientation Straight 07/25/2022 10 :32 AM EDT documented as of this encounter Plan of Treatment Not on file documented as of this encounter Visit Diagnoses Not on filedocumented in this encounter Care Teams Glass Inserter Relationship Specialty Start Date End Date Ronda Medrano FNP PCP - General Family Medicine 03/04/22 03/08/23 documented as of this encounter
--- OUTSIDE RECORDS SUMMARY | 2025-06-18 21:20 | XMS_ITS | Encounter Summary ---
Author Organization [facility] [employer] [facility] Address [address] [place] [address] Care Team Providers Care Taker Off Name Role Phone Unavailable Primary Care Provider Unavailabl e Encounter Details Date Type Department Care Team (Late st Contact Info) Description 06/18/2025 Orders Only GENERIC EXTERNAL DATA DEPARTMENT Provider, Generic External Data Social History Tobacco Use Types Packs/Day Years [...] on file documented as of this encounter Procedures Procedure Name Priority Date/Time Associated Diagnosis Comments CBC WITH AUTO DIFFERENTIAL Routine 06/18/2025 8:57 PM EDT documented in this encounter Results * (ABNORMAL) CBC auto differential (06/18/2025 8:57 PM EDT) White Blood Count 14.4(H) 4.8 - 10.8 X10*3/uL [facility] Red Blood Count 5.13 4.60 - 5.80 X10*6/uL [facility] Hemoglobin 14.5 14.0 - 18.0 g/dl [facility] Hematocrit 41.9(L) 42.0 - 52.0 % [facility] Mean Corpuscular Volume 81.7 80.0 - 98.0 fL [facility] Mean Corpuscular Hemoglobin 28.3 27.0 - 33.0 pg [facility] Mean Corpuscular HGB Conc 34.6 31.0 - 36.0 g/dl [facility] Red Cell Distribution Width 13.0 11.0 - 16.0 % [facility] Platelet Count 217 160 - 400 X10*3/uL [facility] Mean Platelet Volume 9.5 9.4 - 12.4 fL [facility] Neutrophils Percent Auto 66.0 45 - 73 % [facility] Imm Gran Pct Auto 0.3 0.0 - 0.4 % [facility] Lymphocytes Percent Auto 24.3 20 - 40 % [facility] Monocytes Percent Auto 6.6 2 - 11 % [facility] Eosinophils Percent Auto 2.5 0 - 4 % [facility] Basophils Percent Auto 0.3 0 - 2 % [facility] NRBC Pct Auto 0.0 0.0 - 0.2 /100WBC [facility] Neutrophils Absolute Auto 9.5(H) 2.0 - 8.3 x10*3/uL [facility] Imm Gran Abs Auto 0.04(H) 0.00 - 0.03 X10*3/uL [facility] Lymphocytes Absolute Auto 3.5 1.2 - 4.9 X10*3/uL [facility] Monocytes Absolute Auto 1.0 0.1 - 1.2 X10*3/uL [facility] Eosinophils Absolute Auto 0.4 0.0 - 0.4 X10*3/uL [facility] Basophils Absolute Auto 0.1 0.0 - 0.2 X10*3/uL [facility] NRBC Abs Auto 0.000 0.0 - 0.012 X10*3/uL [facility] 06/18/2025 8:57 PM EDT 06/18/2025 9:04 PM EDT us Generic External Data Provider LAB BLOOD ORDERAB LES Final Result [facility] [address] [place] [address] [phone] documented in this encounter Visit Diagnoses Not on filedocumented in this encounter
--- OUTSIDE RECORDS SUMMARY | 2025-06-18 21:20 | XMS_ITS | Clinical Summary ---
Author Organization [employer] Address [address] [place] [address] Care Team Providers Care Range Feeder Name Role Phone Unavailable Primary Care Provider Unavailabl e Encounters Date Type Department Care Team Description 06/18/2025 Orders Only GENERIC EXTERNAL DATA DEPARTMENT Provider, Generic External Data from Last 3 Months Social History Tobacco Use Types Packs/Day Years Used Date Smoking Tobacco: Never Assessed Sex and Gender Information Value Date Recorded Sex Assigned at Male 07/25/2022 10:32 AM EDT Legal Sex Male 10:32 AM EDT Gender Identity Male 07/25/2022 10:32 AM EDT Sexual Orientation Straight 07/25/2022 10 :32 AM EDT Last Filed Vital Signs Vital Sign Reading Time Taken Comments Blood Pressure 132/85 04/23/2021 12:07 AM EDT Pulse 79 04/23/2021 12:07 AM EDT Temperature - - Respiratory Rate - - Oxygen Saturation - - Inhaled Oxygen Concentration - - Weight 99.2 kg (218 lb 9.6 oz) 04/23/2021 12:07 AM EDT Height 171 cm (5' 7.32 ) 04/23/2021 12:07 AM EDT Body Mass Index 33.91 04/23/2021 12:07 AM EDT Plan of Treatment Health Maintenance Due Date Last Done Comments Depression Screening 1990 Disability Screening 1990 Alcohol/Substance Use Screening 2002 Tobacco Screening 2002 Family Planning (PISQ) 2005 HPV Vaccines (1 - Male 3-dos e series) 2005 DTaP/Tdap/Td Vaccines (1 - Tdap) 2009 Hepatitis B Vaccines (1 of 3 - 19+ 3-dose series) 2009 COVID-19 Vaccine (1 - 2023-2 5 season) 2025 Influenza Vaccine (#1) 2025 Zoster Vaccines (1 of 2) 2040 RSV Patients and Pa tients Aged 60 years or older (1 - 1-dose 75+ series) 2065 HIB Vaccines Aged Out No longer eligi ble based on patient's age to complete this topic Hepatitis A Vaccines Aged Out No long er eligible based on patient's age to complete this topic IPV Vaccines Aged Out No longer eligi ble based on patient's age to complete this topic Meningococcal B Vaccine Aged Out No l onger eligible based on patient's age to complete this topic Meningococcal Vaccine Aged Out No sherman vee eligible based on patient's age to complete this topic Pneumococcal Vaccine: Pediat rics (0 to 5 Years) and At-Risk Patients (6 to 49) Years Aged Out No longer eligible b ased on patient's age to complete this topic RSV under 20 months Aged Out No longe r eligible based on patient's age to complete this topic Rotavirus Vaccines Aged Out No longer eligible based on patient's age to complete this topic Procedures Procedure Name Priority Date/Time Associated Diagnosis Comments CBC WITH AUTO DIFFERENTIAL Routine 06/18/2025 8:57 PM EDT from Last 3 Months Results * (ABNORMAL) CBC auto differential (06/18/2025 8:57 PM EDT) White Blood Count 14.4(H) 4.8 - 10.8 X10*3/uL [facility] Red Blood Count 5.13 4.60 - 5.80 X10*6/uL [facility] Hemoglobin 14.5 14.0 - 18.0 g/dl [facility] Hematocrit 41.9(L) 42.0 - 52.0 % [facility] Mean Corpuscular Volume 81.7 80.0 - 98.0 fL [facility] Mean Corpuscular Hemoglobin 28.3 27.0 - 33.0 pg [facility] Mean Corpuscular HGB Conc 34.6 31.0 - 36.0 g/dl [facility] Red Cell Distribution Width 13.0 11.0 - 16.0 % [facility] Platelet Count 217 160 - 400 X10*3/uL [facility] Mean Platelet Volume 9.5 9.4 - 12.4 fL [facility] Neutrophils Percent Auto 66.0 45 - 73 % [facility] Imm Gran Pct Auto 0.3 0.0 - 0.4 % [facility] Lymphocytes Percent Auto 24.3 20 - 40 % [facility] Monocytes Percent Auto 6.6 2 - 11 % [facility] Eosinophils Percent Auto 2.5 0 - 4 % [facility] Basophils Percent Auto 0.3 0 - 2 % [facility] NRBC Pct Auto 0.0 0.0 - 0.2 /100WBC [facility] Neutrophils Absolute Auto 9.5(H) 2.0 - 8.3 x10*3/uL [facility] Imm Gran Abs Auto 0.04(H) 0.00 - 0.03 X10*3/uL [facility] Lymphocytes Absolute Auto 3.5 1.2 - 4.9 X10*3/uL [facility] Monocytes Absolute Auto 1.0 0.1 - 1.2 X10*3/uL [facility] Eosinophils Absolute Auto 0.4 0.0 - 0.4 X10*3/uL [facility] Basophils Absolute Auto 0.1 0.0 - 0.2 X10*3/uL [facility] NRBC Abs Auto 0.000 0.0 - 0.012 X10*3/uL [facility] 06/18/2025 8:57 PM EDT 06/18/2025 9:04 PM EDT us Generic External Data Provider LAB BLOOD ORDERAB LES Final Result [facility] [address] [place] [address] [phone] from Last 3 Months
[2025-06-18 21:23] LABS: Alanine Aminotransferase 90 U/L (0-40); Albumin Level 4.2 g/dL (3.5-5.0); Alkaline Phosphatase 117 U/L (39-117); Anion Gap 11 (12-20); Aspartate Amino Transferase 58 U/L (5-37); Blood Urea Nitrogen 11 mg/dL (9-16); Calcium 9.4 mg/dL (8.4-10.2); Carbon Dioxide 28 mmol/L (22-29); Chloride 107 mmol/L (96-108); Creatinine Clr Calc Pharmacy 114.2; Estimated Glomerular Filt Rate > 60; Magnesium 1.8 mg/dL (1.6-2.6); Potassium 3.2 mmol/L (3.3-5.1); Sodium 143 mmol/L (135-145); Total Protein 7.4 g/dL (6.5-8.0)
[2025-06-18 21:33] LABS: Troponin-I High Sensitivity < 2.7 ng/L (<3.5-35.0)
--- NOTE | 2025-06-18 22:08 | ED.GENADULT ---
[facility] - General Adult General Chief complaint: Dyspnea Stated complaint: headache, vomiting x1hr Time Seen by Provider: 06/18/25 22:01 Source: patient Mode of arrival: ambulatory Limitations: no limitations History of Present Illness ED Provider: Dr. Up [facility] narrative: This is a 34 year old male presented hospital today for headache. Patient is described as a bilateral headache that is pounding in nature he endorses photophobia. Patient stated that he is having some nausea with this. Denies any weakness in extremities. No history of this headache in the past. Patient stated that this started in the afternoon. He did not take any medicine prior to arrival to the ER. Related Data Home Medications ?Medication ?Instructions ?Recorded ?Confirmed methadone 10 mg/5 mL oral solution 40 mg PO DAILY 06/30/24 Previous Rx's ?Medication ?Instructions ?Recorded ondansetron 4 mg disintegrating 4 mg PO Q8H PRN nausea and 06/19/25 tablet vomiting #12 tabs Allergies Allergy/AdvReac Type Severity Reaction Status Date / Time No Known Allergies (No Known Allergy Verified 06/18/25 20:41 Allergies*) Review of Systems Review of Systems: Pertinent review of systems as mentioned in [facility]. All other system otherwise negative. [facility] Past Medical History [facility] Narrative: Medical history as mentioned in [facility] Medical History (Updated 06/19/25 @ 01:29 by Clementine Up DO) Polysubstance abuse No known health problems Social History Social History Household Members: None Housing: Apartment Do you presently have visiting nurse or other home services: No Alcohol intake: current Patient Tobacco Use Status: Current everyday Tobacco user Tobacco use type: Cigarette Cigarette Packs Per Day: 1 Cigarettes Per Day: 20.0 Substance Use Type: Crack/Cocaine and Marijuana service: No Physical Exam ED Exam Exam: General: Pleasant, no distress, interacting appropriately Head: Normacephalic, atraumatic ENT: oral mucosa moist, neck supple, no tracheal deviation Cardiovascular: regular rate, regular rhythm, no murmurs, rubbing, gallops Extremities: No limb pain or swelling, no calf tenderness Neurological: Awake and alert, no facial droop noted, no focal neurological deficit Skin: Warm and dry Psychiatric: Appropriate mood and thoughts Vital Signs: Vital Signs - 24 hr 06/18/25 20:38 06/18/25 21:15 06/18/25 23:26 Temperature 98.2 F Pulse Rate 61 61 70 Respiratory Rate 16 16 12 Blood Pressure 128/89 128/89 140/93 H Pulse Oximetry 96 96 98 Oxygen Delivery Method Room Air Room Air Room Air BMI result Body Mass Index 24.4 Medications Administered Discontinued Medications Generic Name Dose Route Start Last Admin Trade Name Santyq PRN Reason Stop Dose Admin Sodium Chloride 1,000 mls @ 999 mls/hr 06/18/25 22:45 06/19/25 01:15 Ns IV 06/18/25 23:45 Infused .Q1H1M VICENTE Infusion Magnesium Sulfate 2 gm in 50 mls @ 50 mls/hr 06/18/25 22:43 06/19/25 00:30 Magnesium Sulfate/H2o IV 06/18/25 23:42 Infused ONCE ONE Infusion Ketorolac Tromethamine 15 mg 06/18/25 22:43 06/18/25 23:27 Ketorolac Tromethamine 15 Mg/Ml Vial IVPUSH 06/18/25 22:44 15 mg ONCE ONE Administration Metoclopramide HCl 5 mg 06/18/25 22:43 06/18/25 23:27 Metoclopramide Hcl 10 Mg/2 Ml Vial IV 06/18/25 22:44 5 mg ONCE ONE Administration Medical Decision Making Medical Decision Making [facility] Narrative: This is 34-year-old male presented hospital today for headache nausea and symptoms of photophobia. We will plan to treat patient migraine cocktail including IV Toradol, IV Reglan IV magnesium He is neurologically intact I do not think we need a CT imaging at this time. On reassessment the patient's symptom has improved. We will plan to discharge patient with a course of Zofran take as needed for nausea. Discussed discharge plan with the patient via doormaker. He agrees and understands this plan. Differential Diagnosis Differential Diagnoses: The differential diagnosis associated with the presentation includes Tension headache, migraine headache, cluster headache, intracranial bleed Lab Data 06/18/25 20:57 06/18/25 20:57 Labs: Lab Results 06/18/25 Range/Units 20:57 WBC 14.4 H (4.8-10.8) X10*3/uL RBC 5.13 (4.60-5.80) X10*6/uL Hgb 14.5 (14.0-18.0) g/dl Hct 41.9 L (42.0-52.0) % MCV 81.7 (80.0-98.0) fL MCH 28.3 (27.0-33.0) pg MCHC 34.6 (31.0-36.0) g/dl RDW 13.0 (11.0-16.0) % Plt Count 217 (160-400) X10*3/uL MPV 9.5 (9.4-12.4) fL Immature Gran % (Auto) 0.3 (0.0-0.4) % Neut % (Auto) 66.0 (45-73) % Lymph % (Auto) 24.3 (20-40) % Gilchrist % (Auto) 6.6 (2-11) % Eos % (Auto) 2.5 (0-4) % Baso % (Auto) 0.3 (0-2) % Lymph # (Auto) 3.5 (1.2-4.9) X10*3/uL Gilchrist # (Auto) 1.0 (0.1-1.2) X10*3/uL Eos # (Auto) 0.4 (0.0-0.4) X10*3/uL Baso # (Auto) 0.1 (0.0-0.2) X10*3/uL Abs Immat Gran (auto) 0.04 H (0.00-0.03) X10*3/uL Absolute Neuts (auto) 9.5 H (2.0-8.3) x10*3/uL Absolute Nucleated RBC 0.000 (0.0-0.012) X10*3/uL Nucleated RBC % (auto) 0.0 (0.0-0.2) /100WBC Sodium 143 (135-145) mmol/L Potassium 3.2 L (3.3-5.1) mmol/L Chloride 107 (96-108) mmol/L Carbon Dioxide 28 (22-29) mmol/L Anion Gap 11 L (12-20) BUN 11 (9-16) mg/dL Creatinine 0.97 (0.5-1.4) mg/dL Estim Creat Clear Calc 114.2 Estimated GFR > 60 Random Glucose 104 (60-115) mg/dL Calcium 9.4 D (8.4-10.2) mg/dL Magnesium 1.8 (1.6-2.6) mg/dL Total Bilirubin 0.3 (0.0-1.0) mg/dL AST 58 H (5-37) U/L ALT 90 H (0-40) U/L Alkaline Phosphatase 117 (39-117) U/L Troponin I High Sens < 2.7 (<3.5-35.0) ng/L Total Protein 7.4 (6.5-8.0) g/dL Albumin 4.2 (3.5-5.0) g/dL Discharge Plan Discharge Clinical Impression: Headache Qualifiers: Headache type: unspecified Headache chronicity pattern: unspecified pattern Intractability: not intractable Qualified Code(s): R51.9 - Headache, unspecified Patient Disposition: Home, Self-Care Instructions: Acute Headache (ED) Additional Instructions: Stay well hydrated, Take tylenol and motrin as needed for your headache. Prescriptions: New ondansetron 4 mg tablet,disintegrating 4 mg PO Q8H PRN (Reason: nausea and vomiting) Qty: 12 0RF No Action methadone 10 mg/5 mL Solution 40 mg PO DAILY Print Language: Citizen Of [place]
[2025-06-18 23:26] VITALS: BP 140/93; PULSE 70; RESP 12; TEMP 36.8; O2SAT 98
[2025-06-18] MEDS: Magnesium Sulfate/H2O 2 GM/50 ML PIGGYBACK IV (23:29)
--- NOTE | 2025-06-18 23:36 | PC.NURSE ---
pt medicated per MAR, IV in R ac
[2025-06-19 01:34] VITALS: BP 128/86; PULSE 69; RESP 12; TEMP 36.7; O2SAT 97
[2025-06-19] MEDS: Potassium Bicarbonate/Cit AC 25 MEQ TABLET.EFF PO (01:45)
[2025-06-19 01:51] VITALS: BP 128/86; PULSE 69; RESP 12; TEMP 36.7; O2SAT 97
== END 2025-06-19 01:57 | disposition home or self-care (01) ==
PROVIDERS: Emergency Provider Student in an Organized Health Care Education/Training Program
DX: R51.9 Headache, unspecified (principal); R11.10 Vomiting, unspecified
CPT/HCPCS: 36415; 80053; 83735; 84484; 85025; 93005; 96361; 96374; 99284; 99285; J1885; J2765; J3475

== ENCOUNTER → 2025-06-18 20:40 | Outpatient (BNV) | payer MEDICAID, SELFPAY | PROVIDERS: Emergency Provider Student in an Organized Health Care Education/Training Program; Visit Provider Internal Medicine Cardiovascular Disease | DX: I45.10 Unspecified right bundle-branch block (principal) | CPT/HCPCS: 93010 ==